=== PATIENT | female | born 1960 | race Caucasian/White ===

== ENCOUNTER 2017-04-04 06:46 | Inpatient (IN) | payer MEDICAID ==
[~2017-04-04] VITALS: Ht 165.1 cm; Wt 77.1 kg
[~2017-04-04 06:46] MED LIST: ALPR2TAB97 PO; ASPI-1159 PO; ATOR80TA PO; HYDR-4134 PO; ISOS60TA4 PO; METF500T4 PO; METO25TA6 PO
[2017-04-04] MEDS ORDERED: SODIUM CHLORIDE 0.9% 1,000 ML IV ONE (07:07)
[2017-04-04] MEDS ORDERED: METHYLPREDNISOLONE SOD SUCC 125 MG/2 ML VIAL IV STA (07:07)
[2017-04-04] MEDS ORDERED: CLONAZEPAM 0.5MG TABLET PO ONE (07:15)
[2017-04-04] MEDS ORDERED: IPRATROPIUM/ALBUTEROL 0.5-3(2.5)MG/3ML NEB HHN ONE (07:15)
[2017-04-04 07:27] LABS: BASOPHILS % 0.8 % (0.0-2.0); HEMOGLOBIN. 13.9 g/dL (12.0-16.0); LYMPHOCYTES % 22.1 % (20.0-50.0); MEAN CORPUSCULAR VOLUME 88.6 fL (81.0-99.0); MEAN PLATELET VOLUME 8.1 fl (7.4-10.4); MONOCYTES % 6.6 % (2.0-8.0); NEUTROPHILS % 68.5 % (40.0-76.0); PLATELET 247 x1000/uL (130-400); RED BLOOD CELL COUNT 4.62 mill/uL (4.2-5.4); RED CELL DISTRIBUTION WIDTH 13.7 % (11.6-14.6)
[2017-04-04 07:36] LABS: INR 0.9; PARTIAL THROMBOPLASTIN TIME 25.7 sec (24.0-34.0); PROTHROMBIN TIME 9.8 sec
[2017-04-04 07:40] LABS: CARBON DIOXIDE 29 mEq/L (21-32); CHLORIDE 106 mEq/L (98-107)
[2017-04-04 07:44] LABS: TROPONIN I < 0.02 ng/mL (0.00-0.04)
[2017-04-04] MEDS ORDERED: MAGNESIUM/ALUMINUM HYDROXIDE/SIMETHICONE 30ML UDC PO PRN (11:15)
[2017-04-04] MEDS ORDERED: ONDANSETRON HCL 4MG/2ML VIAL IV PRN (11:15)
[2017-04-04] MEDS ORDERED: IPRATROPIUM/ALBUTEROL 0.5-3(2.5)MG/3ML NEB INH PRN (11:15)
[2017-04-04] MEDS ORDERED: ACETAMINOPHEN 325MG TABLET PO PRN (11:15)
[2017-04-04] MEDS ORDERED: LORAZEPAM 0.5MG TABLET PO PRN (11:15)
[2017-04-04] MEDS ORDERED: DOCUSATE SODIUM 100MG CAPSULE PO PRN (11:15)
[2017-04-04] MEDS ORDERED: CLONIDINE 0.1MG TABLET PO PRN (11:15)
[2017-04-04 12:00] VITALS: BP 130/69
[2017-04-04] MEDS: ASPIRIN 81MG EC TABLET PO SCH (12:25)
[2017-04-04] MEDS: ENOXAPARIN 40MG/0.4ML SYR SUBCUT SCH (12:26)
[2017-04-04] MEDS ORDERED: PROMETHAZINE HCL 25MG TABLET PO PRN (12:30)
[2017-04-04] MEDS: BUDESONIDE 0.5MG/2ML NEB HHN SCH ×2 (12:32→21:24)
[2017-04-04 12:48] VITALS: BP 130/69
[2017-04-04] MEDS: METHYLPREDNISOLONE SOD SUCC 40 MG/ML VIAL IV SCH ×2 (14:05→21:02)
[2017-04-04] MEDS ORDERED: DEXTROSE 50% WATER 50ML SYRINGE IV PRN (14:45)
[2017-04-04] MEDS: LORATADINE 10MG TABLET PO SCH (15:00)
[2017-04-04] MEDS: DOCUSATE SODIUM 100MG CAPSULE PO SCH (15:03)
[2017-04-04] MEDS: HYDROCODONE/ACETAMINOPHEN 5/325MG TABLET PO PRN ×2 (15:04→23:59)
[2017-04-04 16:11] VITALS: BP 146/89
[2017-04-04 16:46] VITALS: BP 146/89
[2017-04-04] MEDS: BLOOD SUGAR DIAGNOSTIC STRIP TEST SCH ×2 (17:29→21:05)
[2017-04-04] MEDS: INSULIN LISPRO 100 UNITS/ML SUBCUT SCH ×2 (17:40→21:05)
[2017-04-04 18:11] LABS: CHLORIDE 106 mEq/L (98-107)
[2017-04-04 18:17] LABS: CARBON DIOXIDE 28 mEq/L (21-32)
[2017-04-04 18:22] LABS: CREATINE KINASE 37 IU/L (26-192); CREATINE KINASE MB FRACTION 1.4 ng/mL (0.5-3.6); TROPONIN I < 0.02 ng/mL (0.00-0.04)
[2017-04-04 20:00] VITALS: BP 113/73
[2017-04-04] MEDS ORDERED: ATORVASTATIN CALCIUM 40MG TABLET PO SCH (21:00)
[2017-04-04] MEDS: ALPRAZOLAM 0.5 MG TABLET PO SCH (21:02)
[2017-04-04 23:59] LABS: CREATINE KINASE 33 IU/L (26-192); CREATINE KINASE MB FRACTION 1.5 ng/mL (0.5-3.6); TROPONIN I < 0.02 ng/mL (0.00-0.04)
[2017-04-05] VITALS: BP 125/70
[2017-04-05 00:09] LABS: CLARITY URINE CLEAR (CLEAR); COLOR URINE YELLOW (YELLOW); GLUCOSE URINE 3+ (NEGATIVE); KETONES URINE NEGATIVE (NEGATIVE); LEUKOCYTE ESTERASE URINE NEGATIVE (NEGATIVE); NITRITE URINE POSITIVE (NEGATIVE); OCCULT BLOOD URINE NEGATIVE (NEGATIVE); PH URINE 7.5 (4.5-8.0); PROTEIN URINE NEGATIVE (NEGATIVE); SPECIFIC GRAVITY URINE 1.033 (1.005-1.030); UROBILINOGEN URINE 0.2 E.U./dL (0.2-1.0)
[2017-04-05 00:57] LABS: *AMPHETAMINES SCREEN URINE NEGATIVE (NEGATIVE); *BARBITURATES SCREEN URINE NEGATIVE (NEGATIVE); *BENZODIAZEPINES SCREEN URINE PRESUMTIVE POSITIVE (NEGATIVE); *COCAINE SCREEN URINE PRESUMTIVE POSITIVE (NEGATIVE); CANNABINOID URINE SCREEN NEGATIVE (NEGATIVE); METHADONE URINE SCREEN NEGATIVE (NEGATIVE); OPIATES URINE SCREEN PRESUMTIVE POSITIVE (NEGATIVE); PHENCYCLIDINE URINE SCREEN NEGATIVE (NEGATIVE)
[2017-04-05 04:00] VITALS: BP 129/76
[2017-04-05] MEDS: METHYLPREDNISOLONE SOD SUCC 40 MG/ML VIAL IV SCH ×2 (06:11→13:11)
[2017-04-05] MEDS: BLOOD SUGAR DIAGNOSTIC STRIP TEST SCH ×2 (06:12→11:31)
[2017-04-05 06:23] LABS: HEMATOCRIT. 39.3 % (36.0-48.0); HEMOGLOBIN. 12.9 g/dL (12.0-16.0); MEAN CORPUSCULAR HEMOGLOBIN 29.9 pg (28.0-32.0); MEAN CORPUSCULAR VOLUME 90.8 fL (81.0-99.0); MEAN PLATELET VOLUME 8.3 fl (7.4-10.4); PLATELET 242 x1000/uL (130-400); RED BLOOD CELL COUNT 4.33 mill/uL (4.2-5.4); RED CELL DISTRIBUTION WIDTH 14.2 % (11.6-14.6)
[2017-04-05 08:06] VITALS: BP 112/70
[2017-04-05] MEDS: INSULIN LISPRO 100 UNITS/ML SUBCUT SCH ×2 (08:22→13:13)
[2017-04-05] MEDS: ASPIRIN 81MG EC TABLET PO SCH (08:23)
[2017-04-05] MEDS: DOCUSATE SODIUM 100MG CAPSULE PO SCH (08:23)
[2017-04-05] MEDS: ALPRAZOLAM 0.5 MG TABLET PO SCH (08:23)
[2017-04-05] MEDS: ENOXAPARIN 40MG/0.4ML SYR SUBCUT SCH (08:23)
[2017-04-05] MEDS: LORATADINE 10MG TABLET PO SCH (08:26)
[2017-04-05] MEDS: BUDESONIDE 0.5MG/2ML NEB HHN SCH (09:59)
[2017-04-05 12:10] VITALS: BP 113/64
[2017-04-05 12:14] LABS: PLATELET ESTIMATE NORMAL
[2017-04-05 13:38] VITALS: BP 113/64
== END 2017-04-05 14:50 | disposition home or self-care (01) | DRG 140 ==
LOC: ER 07:03 → 6WST 08:14 → EDBEDREQTM 08:18 → EDBEDREQ 08:18 → ENRESERV 08:30
PROVIDERS: ADMIT Internal Medicine; ATTEND Internal Medicine
DX: J44.1 Chronic obstructive pulmonary disease with (acute) exacerbation (principal); J96.00 Acute respiratory failure, unspecified whether with hypoxia or hypercapnia; I11.9 Hypertensive heart disease without heart failure; Z99.81 Dependence on supplemental oxygen; F41.9 Anxiety disorder, unspecified; E11.9 Type 2 diabetes mellitus without complications; G47.33 Obstructive sleep apnea (adult) (pediatric); F19.10 Other psychoactive substance abuse, uncomplicated; I25.10 Atherosclerotic heart disease of native coronary artery without angina pectoris; J98.11 Atelectasis; Z91.19 Patient's noncompliance with other medical treatment and regimen; Z95.5 Presence of coronary angioplasty implant and graft; Z90.49 Acquired absence of other specified parts of digestive tract; Z88.6 Allergy status to analgesic agent; I25.2 Old myocardial infarction
CPT/HCPCS: 36415; 71010; 80048; 80053; 80061; 80305; 81001; 81003; 82550; 82553; 82962; 83605; 83735; 83880; 84443; 84484; 85025; 85610; 85730; 87040; 87070; 87077; 87086; 93005; 93970; 94640; 96374; 99285; J1650; J1815; J2920; J2930; J7030; J7620; J7626

== ENCOUNTER 2017-06-08 08:14 | Inpatient (IN) | payer MEDICAID ==
[~2017-06-08] VITALS: Ht 165.1 cm; Wt 72.6 kg
[2017-06-08] MEDS: IPRATROPIUM/ALBUTEROL 0.5-3(2.5)MG/3ML NEB INH SCH ×2 (00:07→20:04)
[2017-06-08] MEDS ORDERED: ALBUTEROL (0.083%) 2.5MG/3ML NEB HHN STA ×2 (08:40→12:09)
[2017-06-08] MEDS ORDERED: METHYLPREDNISOLONE SOD SUCC 125 MG/2 ML VIAL IV STA (08:40)
[2017-06-08] MEDS ORDERED: IPRATROPIUM BROMIDE (0.02%) 0.5MG/2.5ML NEB HHN STA ×2 (08:40→12:09)
[2017-06-08 09:33] LABS: BASOPHILS % 0.9 % (0.0-2.0); EOSINOPHILS % 0.9 % (0.0-5.0); LYMPHOCYTES % 33.1 % (20.0-50.0); MEAN CORPUSCULAR HEMOGLOBIN 30.1 pg (28.0-32.0); MEAN CORPUSCULAR VOLUME 90.5 fL (81.0-99.0); MEAN PLATELET VOLUME 8.1 fl (7.4-10.4); MONOCYTES % 8.5 % (2.0-8.0); NEUTROPHILS % 56.6 % (40.0-76.0); PLATELET 243 x1000/uL (130-400); RED BLOOD CELL COUNT 4.64 mill/uL (4.2-5.4); RED CELL DISTRIBUTION WIDTH 13.5 % (11.6-14.6)
[2017-06-08 09:36] LABS: CHLORIDE 104 mEq/L (98-107)
[2017-06-08 09:38] LABS: CARBON DIOXIDE 29 mEq/L (21-32)
[2017-06-08] MEDS ORDERED: POTASSIUM CHLORIDE 20MEQ TABLET SR PO ONE (09:45)
[2017-06-08] MEDS ORDERED: AZITHROMYCIN 500 MG TABLET PO ONE (10:15)
[2017-06-08] MEDS ORDERED: SODIUM CHLORIDE 0.9% 1,000 ML IV ONE (12:09)
[2017-06-08] MEDS ORDERED: LEVOFLOXACIN 750MG PREMIX 150 ML IV STA (12:09)
[2017-06-08] MEDS ORDERED: MAGNESIUM 2 G PREMIX 50 ML IV STA (12:09)
[2017-06-08] MEDS ORDERED: CLONIDINE 0.1MG TABLET PO PRN (13:30)
[2017-06-08] MEDS ORDERED: IPRATROPIUM/ALBUTEROL 0.5-3(2.5)MG/3ML NEB INH PRN (13:30)
[2017-06-08] MEDS ORDERED: DIPHENHYDRAMINE 50MG/ML VIAL IV PRN (13:30)
[2017-06-08] MEDS ORDERED: ONDANSETRON HCL 4MG/2ML VIAL IV PRN (13:30)
[2017-06-08] MEDS ORDERED: ACETAMINOPHEN 325MG TABLET PO PRN (13:30)
[2017-06-08] MEDS ORDERED: POTASSIUM CHLORIDE 20MEQ TABLET SR PO NR (13:45)
[2017-06-08] MEDS ORDERED: DEXTROSE 50% WATER 50ML SYRINGE IV PRN (13:45)
[2017-06-08] MEDS: METHYLPREDNISOLONE SOD SUCC 40 MG/ML VIAL IV SCH ×2 (15:39→23:40)
[2017-06-08] MEDS: INSULIN LISPRO 100 UNITS/ML SUBCUT SCH ×2 (16:37→20:53)
[2017-06-08] MEDS: BLOOD SUGAR DIAGNOSTIC STRIP TEST SCH ×2 (16:40→20:53)
[2017-06-08] MEDS ORDERED: LEVOFLOXACIN 500MG PREMIX 100 ML IV SCH (17:00)
[2017-06-08] MEDS: ENOXAPARIN 40MG/0.4ML SYR SUBCUT SCH (17:50)
[2017-06-08] MEDS: HYDROCODONE/ACETAMINOPHEN 5/325MG TABLET PO PRN (17:55)
[2017-06-08] MEDS: BUDESONIDE 0.5MG/2ML NEB HHN SCH (20:01)
[2017-06-08] MEDS: GUAIFENESIN 600MG ER TABLET PO SCH (20:53)
[2017-06-08] MEDS ORDERED: HYDRALAZINE HCL 25MG TABLET PO SCH (22:15)
[2017-06-08] MEDS ORDERED: METOPROLOL TARTRATE 25MG TABLET PO SCH (22:30)
[2017-06-08] MEDS: ATORVASTATIN CALCIUM 40MG TABLET PO SCH (23:41)
[2017-06-08] MEDS: ALPRAZOLAM 0.5 MG TABLET PO PRN (23:41)
[2017-06-09] MEDS: IPRATROPIUM/ALBUTEROL 0.5-3(2.5)MG/3ML NEB INH SCH ×6 (00:06→20:19)
[2017-06-09] MEDS: HYDROCODONE/ACETAMINOPHEN 5/325MG TABLET PO PRN ×2 (05:42→13:43)
[2017-06-09] MEDS: BLOOD SUGAR DIAGNOSTIC STRIP TEST SCH ×4 (05:45→20:10)
[2017-06-09 06:27] LABS: HEMATOCRIT. 39.4 % (36.0-48.0); HEMOGLOBIN. 12.9 g/dL (12.0-16.0); MEAN CORPUSCULAR HEMOGLOBIN 29.9 pg (28.0-32.0); MEAN CORPUSCULAR VOLUME 91.3 fL (81.0-99.0); MEAN PLATELET VOLUME 8.7 fl (7.4-10.4); PLATELET 247 x1000/uL (130-400); RED BLOOD CELL COUNT 4.31 mill/uL (4.2-5.4); RED CELL DISTRIBUTION WIDTH 13.4 % (11.6-14.6)
[2017-06-09] MEDS: INSULIN LISPRO 100 UNITS/ML SUBCUT SCH ×4 (06:46→20:11)
[2017-06-09 07:18] LABS: CHLORIDE 106 mEq/L (98-107)
[2017-06-09 07:26] LABS: CARBON DIOXIDE 28 mEq/L (21-32); HDL CHOLESTEROL 64 mg/dL (40-59); LDL CHOLESTEROL 83 mg/dL (5-100)
[2017-06-09] MEDS: BUDESONIDE 0.5MG/2ML NEB HHN SCH ×2 (07:55→20:22)
[2017-06-09] MEDS: GUAIFENESIN 600MG ER TABLET PO SCH ×2 (08:30→20:07)
[2017-06-09] MEDS: ALPRAZOLAM 0.5 MG TABLET PO PRN ×2 (08:30→23:47)
[2017-06-09] MEDS: METFORMIN HCL 500MG TABLET PO SCH ×2 (08:31→17:55)
[2017-06-09] MEDS: ASPIRIN 81MG EC TABLET PO SCH (08:31)
[2017-06-09] MEDS: METHYLPREDNISOLONE SOD SUCC 40 MG/ML VIAL IV SCH ×3 (08:36→23:47)
[2017-06-09] MEDS ORDERED: ISOSORBIDE MONONITRATE 60MG TABLET SR 24HR PO SCH (09:00)
[2017-06-09] MEDS ORDERED: MEDICATION NOT ON FORMULARY EA (Atorvastatin Calcium (Lipitor) 1 TAB) PO SCH (09:00)
[2017-06-09 09:59] LABS: PLATELET ESTIMATE NORMAL
[2017-06-09] MEDS: LEVOFLOXACIN 500MG PREMIX 100 ML IV SCH (13:36)
[2017-06-09] MEDS: ENOXAPARIN 40MG/0.4ML SYR SUBCUT SCH (17:55)
[2017-06-09] MEDS: ATORVASTATIN CALCIUM 40MG TABLET PO SCH (20:07)
[2017-06-10] MEDS: IPRATROPIUM/ALBUTEROL 0.5-3(2.5)MG/3ML NEB INH SCH ×7 (00:05→23:21)
[2017-06-10] MEDS: HYDROCODONE/ACETAMINOPHEN 5/325MG TABLET PO PRN ×2 (04:21→14:43)
[2017-06-10 06:18] LABS: HEMATOCRIT. 39.5 % (36.0-48.0); HEMOGLOBIN. 12.8 g/dL (12.0-16.0); MEAN CORPUSCULAR HEMOGLOBIN 29.6 pg (28.0-32.0); MEAN CORPUSCULAR VOLUME 91.3 fL (81.0-99.0); MEAN PLATELET VOLUME 8.3 fl (7.4-10.4); PLATELET 270 x1000/uL (130-400); RED BLOOD CELL COUNT 4.33 mill/uL (4.2-5.4); RED CELL DISTRIBUTION WIDTH 13.4 % (11.6-14.6)
[2017-06-10] MEDS: BLOOD SUGAR DIAGNOSTIC STRIP TEST SCH ×4 (06:38→20:34)
[2017-06-10 06:39] LABS: CARBON DIOXIDE 30 mEq/L (21-32); CHLORIDE 104 mEq/L (98-107)
[2017-06-10] MEDS: INSULIN LISPRO 100 UNITS/ML SUBCUT SCH ×4 (06:39→20:58)
[2017-06-10] MEDS: BUDESONIDE 0.5MG/2ML NEB HHN SCH ×2 (08:36→21:12)
[2017-06-10] MEDS: METHYLPREDNISOLONE SOD SUCC 40 MG/ML VIAL IV SCH ×2 (09:03→20:33)
[2017-06-10] MEDS: ASPIRIN 81MG EC TABLET PO SCH (09:04)
[2017-06-10] MEDS: ISOSORBIDE MONONITRATE 30MG TABLET SR 24HR PO SCH (09:04)
[2017-06-10] MEDS: METFORMIN HCL 500MG TABLET PO SCH ×2 (09:04→17:32)
[2017-06-10] MEDS: GUAIFENESIN 600MG ER TABLET PO SCH ×2 (09:05→20:34)
[2017-06-10] MEDS: ALPRAZOLAM 0.5 MG TABLET PO PRN ×2 (10:53→23:51)
[2017-06-10] MEDS: LEVOFLOXACIN 500MG PREMIX 100 ML IV SCH (14:44)
[2017-06-10] MEDS: ENOXAPARIN 40MG/0.4ML SYR SUBCUT SCH (14:44)
[2017-06-10] MEDS ORDERED: SODIUM POLYSTYRENE SULFONATE 15 G/60 ML BOT PO NR (16:09)
[2017-06-10] MEDS: CEFTRIAXONE 1 G PREMIX 50 ML IV SCH (17:32)
[2017-06-10] MEDS: AZITHROMYCIN 500 MG in DEXT 5% WATER 250 ML IV SCH (20:33)
[2017-06-10] MEDS: ATORVASTATIN CALCIUM 40MG TABLET PO SCH (20:34)
[2017-06-11] MEDS: IPRATROPIUM/ALBUTEROL 0.5-3(2.5)MG/3ML NEB INH SCH ×6 (03:43→23:42)
[2017-06-11] MEDS: HYDROCODONE/ACETAMINOPHEN 5/325MG TABLET PO PRN ×2 (04:17→08:43)
[2017-06-11] MEDS: BLOOD SUGAR DIAGNOSTIC STRIP TEST SCH ×4 (06:25→20:55)
[2017-06-11] MEDS: INSULIN LISPRO 100 UNITS/ML SUBCUT SCH ×4 (06:26→20:55)
[2017-06-11 06:51] LABS: HEMATOCRIT. 39.7 % (36.0-48.0); HEMOGLOBIN. 13.2 g/dL (12.0-16.0); LYMPHOCYTES % 7.9 % (20.0-50.0); MEAN CORPUSCULAR HEMOGLOBIN 30.1 pg (28.0-32.0); MEAN CORPUSCULAR VOLUME 90.7 fL (81.0-99.0); MEAN PLATELET VOLUME 8.5 fl (7.4-10.4); MONOCYTES % 4.7 % (2.0-8.0); NEUTROPHILS % 87.4 % (40.0-76.0); PLATELET 258 x1000/uL (130-400); RED BLOOD CELL COUNT 4.38 mill/uL (4.2-5.4); RED CELL DISTRIBUTION WIDTH 13.4 % (11.6-14.6)
[2017-06-11 07:15] LABS: CHLORIDE 102 mEq/L (98-107)
[2017-06-11 07:22] LABS: CARBON DIOXIDE 29 mEq/L (21-32)
[2017-06-11] MEDS: BUDESONIDE 0.5MG/2ML NEB HHN SCH (08:26)
[2017-06-11] MEDS: ASPIRIN 81MG EC TABLET PO SCH (08:36)
[2017-06-11] MEDS: METHYLPREDNISOLONE SOD SUCC 40 MG/ML VIAL IV SCH ×2 (08:36→20:48)
[2017-06-11] MEDS: ISOSORBIDE MONONITRATE 30MG TABLET SR 24HR PO SCH (08:36)
[2017-06-11] MEDS: GUAIFENESIN 600MG ER TABLET PO SCH ×2 (08:36→20:48)
[2017-06-11] MEDS: METFORMIN HCL 500MG TABLET PO SCH ×2 (08:37→16:54)
[2017-06-11] MEDS: ALPRAZOLAM 0.5 MG TABLET PO PRN ×2 (08:42→16:54)
[2017-06-11] MEDS ORDERED: SODIUM POLYSTYRENE SULFONATE 15 G/60 ML BOT PO NR (09:41)
[2017-06-11 12:16] LABS: PLATELET ESTIMATE NORMAL
[2017-06-11] MEDS ORDERED: DILTIAZEM HCL 5MG/ML 5ML VIAL IV PRN (15:45)
[2017-06-11] MEDS: ENOXAPARIN 40MG/0.4ML SYR SUBCUT SCH (17:00)
[2017-06-11] MEDS: CEFTRIAXONE 1 G PREMIX 50 ML IV SCH (17:00)
[2017-06-11] MEDS: DILTIAZEM HCL 30MG TABLET PO SCH (17:01)
[2017-06-11] MEDS: AZITHROMYCIN 500 MG in DEXT 5% WATER 250 ML IV SCH (20:48)
[2017-06-11] MEDS ORDERED: ATORVASTATIN CALCIUM 20MG TABLET PO SCH (21:00)
[2017-06-12] MEDS: DILTIAZEM HCL 30MG TABLET PO SCH ×3 (00:10→12:00)
[2017-06-12] MEDS: HYDROCODONE/ACETAMINOPHEN 5/325MG TABLET PO PRN ×3 (00:12→12:57)
[2017-06-12] MEDS: IPRATROPIUM/ALBUTEROL 0.5-3(2.5)MG/3ML NEB INH SCH ×4 (03:30→16:00)
[2017-06-12] MEDS: ALPRAZOLAM 0.5 MG TABLET PO PRN ×2 (05:13→14:48)
[2017-06-12] MEDS: BLOOD SUGAR DIAGNOSTIC STRIP TEST SCH ×2 (06:50→11:52)
[2017-06-12] MEDS: METFORMIN HCL 500MG TABLET PO SCH (06:50)
[2017-06-12] MEDS: INSULIN LISPRO 100 UNITS/ML SUBCUT SCH ×2 (06:50→12:15)
[2017-06-12 06:53] LABS: HEMATOCRIT. 41.7 % (36.0-48.0); HEMOGLOBIN. 13.7 g/dL (12.0-16.0); MEAN CORPUSCULAR HEMOGLOBIN 29.8 pg (28.0-32.0); MEAN CORPUSCULAR VOLUME 90.9 fL (81.0-99.0); MEAN PLATELET VOLUME 8.1 fl (7.4-10.4); PLATELET 228 x1000/uL (130-400); RED BLOOD CELL COUNT 4.59 mill/uL (4.2-5.4); RED CELL DISTRIBUTION WIDTH 13.3 % (11.6-14.6)
[2017-06-12 07:35] LABS: CHLORIDE 103 mEq/L (98-107)
[2017-06-12 07:59] LABS: CARBON DIOXIDE 29 mEq/L (21-32)
[2017-06-12] MEDS: ASPIRIN 81MG EC TABLET PO SCH (08:58)
[2017-06-12] MEDS: ISOSORBIDE MONONITRATE 30MG TABLET SR 24HR PO SCH (08:59)
[2017-06-12] MEDS: GUAIFENESIN 600MG ER TABLET PO SCH (08:59)
[2017-06-12] MEDS: METHYLPREDNISOLONE SOD SUCC 40 MG/ML VIAL IV SCH (08:59)
[2017-06-12 10:27] LABS: PLATELET ESTIMATE NORMAL
[2017-06-12] MEDS ORDERED: MAGNESIUM 2 G PREMIX 50 ML IV SCH (12:00)
[2017-06-12] MEDS ORDERED: POTASSIUM CHLORIDE 20MEQ TABLET SR PO ONE ×2 (15:30)
[2017-06-12] MEDS ORDERED: SODIUM CHLORIDE 0.9% 1,000 ML IV SCH (15:30)
[2017-06-12 15:48] VITALS: BP 93/50
[2017-06-12] MEDS ORDERED: PREDNISONE 20MG TABLET PO SCH (17:15)
[2017-06-12] MEDS ORDERED: AZITHROMYCIN 500 MG TABLET PO SCH (20:00)
[2017-08-01] MEDS ORDERED: ALBU18HF2 IH (10:00)
[2017-08-01] MEDS ORDERED: ISOS60TA4 PO (10:00)
[2017-08-01] MEDS ORDERED: P50 PO (10:00)
[2017-08-01] MEDS ORDERED: ASPI-986 PO (10:00)
[2017-08-01] MEDS ORDERED: METF500T4 PO (10:00)
[2017-08-01] MEDS ORDERED: TIOT18CA3 INH (10:00)
[2017-08-01] MEDS ORDERED: ATOR80TA PO (10:00)
[2017-08-01] MEDS ORDERED: CEPH-569 PO (10:01)
[2017-08-01] MEDS ORDERED: PROM25TA13 PO (12:16)
[2017-10-05] MEDS ORDERED: ALPR2TAB2 PO (09:52)
[2017-10-05] MEDS ORDERED: HYDR-4005 PO (09:52)
== END 2017-06-12 19:00 | disposition home or self-care (01) | DRG 720 ==
LOC: ER 08:24 → 5WST 12:16 → ENRESERV 13:12
PROVIDERS: ADMIT Internal Medicine; ATTEND Internal Medicine
PROC: 5A09457 Assistance with Respiratory Ventilation, 24-96 Consecutive Hours, Continuous Positive Airway Pressure (ICD-10-PCS; principal; 2017-06-09)
DX: A41.9 Sepsis, unspecified organism (principal); J96.01 Acute respiratory failure with hypoxia; I11.0 Hypertensive heart disease with heart failure; J18.9 Pneumonia, unspecified organism; I50.9 Heart failure, unspecified; J44.0 Chronic obstructive pulmonary disease with (acute) lower respiratory infection; J44.1 Chronic obstructive pulmonary disease with (acute) exacerbation; E11.9 Type 2 diabetes mellitus without complications; E87.6 Hypokalemia; I25.10 Atherosclerotic heart disease of native coronary artery without angina pectoris; Z82.5 Family history of asthma and other chronic lower respiratory diseases; Z87.891 Personal history of nicotine dependence; Z95.5 Presence of coronary angioplasty implant and graft; E66.9 Obesity, unspecified; E78.5 Hyperlipidemia, unspecified; E87.5 Hyperkalemia; F41.9 Anxiety disorder, unspecified; G47.33 Obstructive sleep apnea (adult) (pediatric); I47.1 Supraventricular tachycardia; I48.92 Unspecified atrial flutter; K43.2 Incisional hernia without obstruction or gangrene; T38.0X5A Adverse effect of glucocorticoids and synthetic analogues, initial encounter; Z79.82 Long term (current) use of aspirin; Z79.84 Long term (current) use of oral hypoglycemic drugs; Z79.899 Other long term (current) drug therapy; Z82.49 Family history of ischemic heart disease and other diseases of the circulatory system; Z87.74 Personal history of (corrected) congenital malformations of heart and circulatory system; Z88.5 Allergy status to narcotic agent; Z90.49 Acquired absence of other specified parts of digestive tract; Z95.1 Presence of aortocoronary bypass graft; Z68.26 Body mass index [BMI] 26.0-26.9, adult; Z83.6 Family history of other diseases of the respiratory system
CPT/HCPCS: 36415; 71010; 80048; 80053; 80061; 82962; 83605; 83735; 84132; 84484; 85025; 87040; 87086; 93005; 93306; 94640; 94644; 94660; 94664; 96365; 96375; 99285; J0456; J0696; J1200; J1650; J1815; J1956; J2920; J2930; J3475; J7030; J7040; J7060; J7611; J7620; J7626

== ENCOUNTER 2017-07-13 19:50 | Inpatient (IN) | payer MEDICAID, OTHER ==
[~2017-07-13] VITALS: Ht 165.1 cm; Wt 78.2 kg
[~2017-07-13 19:50] MED LIST changes: -HYDR-4134 PO; -METO25TA6 PO
[2017-07-13] MEDS ORDERED: METHYLPREDNISOLONE SOD SUCC 125 MG/2 ML VIAL IV STA (21:00)
[2017-07-13] MEDS ORDERED: IPRATROPIUM BROMIDE (0.02%) 0.5MG/2.5ML NEB HHN STA (21:00)
[2017-07-13] MEDS ORDERED: METHYLPREDNISOLONE SOD SUCC 125 MG/2 ML VIAL IV ONE (21:00)
[2017-07-13] MEDS ORDERED: HYDROCODONE/ACETAMINOPHEN 5/325MG TABLET PO ONE (21:00)
[2017-07-13] MEDS ORDERED: ALBUTEROL (0.083%) 2.5MG/3ML NEB HHN STA (21:00)
[2017-07-13] MEDS ORDERED: ALPRAZOLAM 0.5 MG TABLET PO ONE (21:30)
[2017-07-13 23:40] LABS: BASOPHILS % 0.5 % (0.0-2.0); EOSINOPHILS % 0.7 % (0.0-5.0); HEMATOCRIT. 41.4 % (36.0-48.0); HEMOGLOBIN. 13.7 g/dL (12.0-16.0); LYMPHOCYTES % 24.7 % (20.0-50.0); MEAN CORPUSCULAR HEMOGLOBIN 30.2 pg (28.0-32.0); MEAN CORPUSCULAR VOLUME 91.2 fL (81.0-99.0); MEAN PLATELET VOLUME 8.2 fl (7.4-10.4); MONOCYTES % 3.3 % (2.0-8.0); NEUTROPHILS % 70.8 % (40.0-76.0); PLATELET 157 x1000/uL (130-400); RED BLOOD CELL COUNT 4.54 mill/uL (4.2-5.4); RED CELL DISTRIBUTION WIDTH 14.1 % (11.6-14.6)
[2017-07-13 23:56] LABS: CARBON DIOXIDE 27 mEq/L (21-32); CHLORIDE 110 mEq/L (98-107); TROPONIN I < 0.02 ng/mL (0.00-0.04)
[2017-07-14] MEDS ORDERED: ACETAMINOPHEN 325MG TABLET PO PRN (00:15)
[2017-07-14] MEDS ORDERED: NA PHOS,M-B/NA PHOS,DI-BA ENEMA 118ML PR PRN (00:15)
[2017-07-14] MEDS ORDERED: CLONIDINE 0.1MG TABLET PO PRN (00:15)
[2017-07-14] MEDS ORDERED: LORAZEPAM 2MG/ML CPJ IV PRN (00:15)
[2017-07-14] MEDS ORDERED: DIPHENHYDRAMINE 50MG/ML VIAL IV PRN (00:15)
[2017-07-14] MEDS ORDERED: GUAIFENESIN 200MG/10ML SUGAR FREE UDC PO PRN (00:15)
[2017-07-14] MEDS ORDERED: NITROGLYCERIN 0.4MG TABLET SL SL PRN (00:15)
[2017-07-14] MEDS ORDERED: MAGNESIUM/ALUMINUM HYDROXIDE/SIMETHICONE 30ML UDC PO PRN (00:15)
[2017-07-14] MEDS ORDERED: ONDANSETRON HCL 4MG/2ML VIAL IV PRN (00:15)
[2017-07-14] MEDS ORDERED: ZOLPIDEM TARTRATE 5MG TABLET PO PRN (00:15)
[2017-07-14] MEDS ORDERED: DOCUSATE SODIUM 100MG CAPSULE PO PRN (00:15)
[2017-07-14] MEDS ORDERED: IPRATROPIUM/ALBUTEROL 0.5-3(2.5)MG/3ML NEB INH PRN (00:15)
[2017-07-14 02:00] VITALS: BP 114/49
[2017-07-14] MEDS: KETOROLAC 15MG/ML VIAL IV PRN ×2 (02:15→08:53)
[2017-07-14 04:00] VITALS: BP 115/60
[2017-07-14] MEDS ORDERED: IPRATROPIUM/ALBUTEROL 0.5-3(2.5)MG/3ML NEB HHN SCH (04:00)
[2017-07-14] MEDS ORDERED: METHYLPREDNISOLONE SOD SUCC 125 MG/2 ML VIAL IV SCH (06:00)
[2017-07-14 07:43] LABS: CREATINE KINASE 44 IU/L (26-192); CREATINE KINASE MB FRACTION 2.1 ng/mL (0.5-3.6); TROPONIN I < 0.02 ng/mL (0.00-0.04)
[2017-07-14 08:00] VITALS: BP 126/79
[2017-07-14] MEDS ORDERED: FAMOTIDINE 20MG/2ML VIAL IV SCH (09:00)
[2017-07-14] MEDS ORDERED: ENOXAPARIN 40MG/0.4ML SYR SUBCUT SCH (09:00)
[2017-07-14] MEDS ORDERED: ASPIRIN 325MG EC TABLET PO SCH (09:00)
[2017-07-14] MEDS ORDERED: GUAIFENESIN/DM 600MG/30MG ER TAB 12HR PO SCH (09:00)
[2017-07-14] MEDS ORDERED: BUDESONIDE 0.5MG/2ML NEB HHN SCH (11:45)
[2017-07-14] MEDS ORDERED: PNEUMOCOCCAL 23-VAL P-SAC VAC 0.5 ML IM ONE (12:00)
[2017-07-14 12:40] VITALS: BP 125/80
[2017-07-14 13:05] LABS: *AMPHETAMINES SCREEN URINE NEGATIVE (NEGATIVE); *BARBITURATES SCREEN URINE PRESUMTIVE POSITIVE (NEGATIVE); *BENZODIAZEPINES SCREEN URINE PRESUMTIVE POSITIVE (NEGATIVE); *COCAINE SCREEN URINE PRESUMTIVE POSITIVE (NEGATIVE); CANNABINOID URINE SCREEN PRESUMTIVE POSITIVE (NEGATIVE); METHADONE URINE SCREEN NEGATIVE (NEGATIVE); OPIATES URINE SCREEN PRESUMTIVE POSITIVE (NEGATIVE); PHENCYCLIDINE URINE SCREEN NEGATIVE (NEGATIVE)
[2017-08-01] MEDS ORDERED: ASPI-986 PO (10:00)
[2017-08-01] MEDS ORDERED: METF500T4 PO (10:00)
[2017-08-01] MEDS ORDERED: TIOT18CA3 INH (10:00)
[2017-08-01] MEDS ORDERED: ALBU18HF2 IH (10:00)
[2017-08-01] MEDS ORDERED: ATOR80TA PO (10:00)
[2017-08-01] MEDS ORDERED: ISOS60TA4 PO (10:00)
[2017-08-01] MEDS ORDERED: P50 PO (10:00)
[2017-08-01] MEDS ORDERED: CEPH-569 PO (10:01)
[2017-08-01] MEDS ORDERED: PROM25TA13 PO (12:16)
== END 2017-07-14 13:00 | disposition home or self-care (01) | DRG 140 ==
LOC: ER 21:35 → 5WST 23:45 → ENRESERV 07-14 00:11
PROVIDERS: ADMIT Internal Medicine; ATTEND Internal Medicine
DX: J44.1 Chronic obstructive pulmonary disease with (acute) exacerbation (principal); J96.00 Acute respiratory failure, unspecified whether with hypoxia or hypercapnia; I11.0 Hypertensive heart disease with heart failure; I50.32 Chronic diastolic (congestive) heart failure; J45.901 Unspecified asthma with (acute) exacerbation; E66.9 Obesity, unspecified; E11.9 Type 2 diabetes mellitus without complications; F41.1 Generalized anxiety disorder; G47.30 Sleep apnea, unspecified; I25.10 Atherosclerotic heart disease of native coronary artery without angina pectoris; Z82.49 Family history of ischemic heart disease and other diseases of the circulatory system; Z87.891 Personal history of nicotine dependence; Z95.5 Presence of coronary angioplasty implant and graft; Z88.5 Allergy status to narcotic agent; Z68.28 Body mass index [BMI] 28.0-28.9, adult; Z82.5 Family history of asthma and other chronic lower respiratory diseases; Z79.84 Long term (current) use of oral hypoglycemic drugs; Z79.899 Other long term (current) drug therapy; Z90.49 Acquired absence of other specified parts of digestive tract
CPT/HCPCS: 36415; 71010; 80048; 80061; 80305; 82550; 82553; 83036; 83880; 84484; 85025; 94640; 94660; 96374; 99291; J1650; J1885; J2060; J2930; J3490; J7611; J7620

== ENCOUNTER 2017-07-31 01:23 | Inpatient (IN) | payer MEDICAID ==
[~2017-07-31] VITALS: Ht 162.6 cm; Wt 72.6 kg
[2017-07-31] MEDS ORDERED: ASPIRIN 81MG TABLET PO ONE (03:00)
[2017-07-31] MEDS ORDERED: KETOROLAC 30MG/ML VIAL IV STA (03:00)
[2017-07-31] MEDS ORDERED: MAGNESIUM 2 G PREMIX 50 ML IV ONE (03:00)
[2017-07-31] MEDS ORDERED: LEVOFLOXACIN 250MG PREMIX 50 ML IV ONE (03:00)
[2017-07-31] MEDS ORDERED: ALBUTEROL (0.083%) 2.5MG/3ML NEB HHN STA (03:00)
[2017-07-31] MEDS ORDERED: IPRATROPIUM BROMIDE (0.02%) 0.5MG/2.5ML NEB HHN STA (03:00)
[2017-07-31] MEDS ORDERED: METHYLPREDNISOLONE SOD SUCC 125 MG/2 ML VIAL IV STA (03:00)
[2017-07-31] MEDS ORDERED: NITROGLYCERIN OINT 1GM/INCH UDPKT TD ONE (03:00)
[2017-07-31] MEDS ORDERED: SODIUM CHLORIDE 0.9% 1,000 ML IV ONE (03:00)
[2017-07-31 03:27] LABS: EOSINOPHILS % 0.6 % (0.0-5.0); HEMATOCRIT. 40.2 % (36.0-48.0); HEMOGLOBIN. 13.4 g/dL (12.0-16.0); MEAN CORPUSCULAR HEMOGLOBIN 29.9 pg (28.0-32.0); MEAN CORPUSCULAR VOLUME 89.8 fL (81.0-99.0); MEAN PLATELET VOLUME 8.3 fl (7.4-10.4); NEUTROPHILS % 78.4 % (40.0-76.0); PLATELET 207 x1000/uL (130-400); RED BLOOD CELL COUNT 4.48 mill/uL (4.2-5.4); RED CELL DISTRIBUTION WIDTH 14.3 % (11.6-14.6)
[2017-07-31 03:40] LABS: D-DIMER 0.33 mg/L FEU (<0.50)
[2017-07-31 03:52] LABS: CARBON DIOXIDE 26 mEq/L (21-32); CHLORIDE 109 mEq/L (98-107); ETHANOL BLOOD < 10 mg/dL; HCG SCREEN NEGATIVE; TROPONIN I < 0.02 ng/mL (0.00-0.04)
[2017-07-31 10:00] VITALS: BP 109/70
[2017-07-31] MEDS ORDERED: ASPI-986 PO (10:14)
[2017-07-31] MEDS ORDERED: ALBU18HF2 IH (10:14)
[2017-07-31] MEDS ORDERED: TIOT18CA3 INH (10:14)
[2017-07-31] MEDS: ALPRAZOLAM 0.5 MG TABLET PO SCH ×2 (11:04→22:38)
[2017-07-31] MEDS ORDERED: CLONIDINE 0.1MG TABLET PO PRN (13:45)
[2017-07-31] MEDS ORDERED: NA PHOS,M-B/NA PHOS,DI-BA ENEMA 118ML PR PRN (13:45)
[2017-07-31] MEDS ORDERED: ACETAMINOPHEN 650MG/20.3ML UDC GT PRN (13:45)
[2017-07-31] MEDS ORDERED: MAGNESIUM/ALUMINUM HYDROXIDE/SIMETHICONE 30ML UDC PO PRN (13:45)
[2017-07-31] MEDS ORDERED: ACETAMINOPHEN 650MG SUPP PR PRN (13:45)
[2017-07-31] MEDS ORDERED: IPRATROPIUM/ALBUTEROL 0.5-3(2.5)MG/3ML NEB INH PRN (13:45)
[2017-07-31] MEDS ORDERED: PIPERACILLIN/TAZ 2.25G PREMIX 50 ML IV SCH (13:45)
[2017-07-31] MEDS ORDERED: DIPHENHYDRAMINE 50MG/ML VIAL IV PRN (13:45)
[2017-07-31] MEDS ORDERED: ONDANSETRON HCL 4MG/2ML VIAL IV PRN (13:45)
[2017-07-31] MEDS: SODIUM CHLORIDE 0.9% INJ 3ML FLUSH IVF SCH ×2 (14:00→20:46)
[2017-07-31] MEDS: IPRATROPIUM/ALBUTEROL 0.5-3(2.5)MG/3ML NEB INH SCH ×2 (15:10→21:49)
[2017-07-31 16:00] VITALS: BP 102/60
[2017-07-31] MEDS ORDERED: INFLUENZA VIRUS VACCINE 0.5ML SYR IM ONE (16:00)
[2017-07-31 16:32] LABS: CARBON DIOXIDE 29 mEq/L (21-32); CHLORIDE 106 mEq/L (98-107); CREATINE KINASE 62 IU/L (26-192); TROPONIN I < 0.02 ng/mL (0.00-0.04)
[2017-07-31] MEDS: PIPERACILLIN/TAZ 3.375G PREMIX 50 ML IV SCH ×2 (16:52→21:14)
[2017-07-31] MEDS: HYDROCODONE/ACETAMINOPHEN 5/325MG TABLET PO PRN ×2 (16:53→20:44)
[2017-07-31 20:00] VITALS: BP 120/63
[2017-07-31] MEDS ORDERED: ATOR80TA PO (22:41)
[2017-07-31] MEDS ORDERED: MEDICATION NOT ON FORMULARY EA (Atorvastatin Calcium (Lipitor) 1 TAB) PO SCH (23:30)
[2017-07-31] MEDS ORDERED: ATORVASTATIN CALCIUM 40MG TABLET PO SCH ×2 (23:30)
[2017-08-01] VITALS: BP 101/52
[2017-08-01 00:24] LABS: CREATINE KINASE 47 IU/L (26-192); TROPONIN I < 0.02 ng/mL (0.00-0.04)
[2017-08-01] MEDS: IPRATROPIUM/ALBUTEROL 0.5-3(2.5)MG/3ML NEB INH SCH ×2 (02:34→07:46)
[2017-08-01 04:00] VITALS: BP 129/51
[2017-08-01 04:57] LABS: CLARITY URINE CLEAR (CLEAR); COLOR URINE YELLOW (YELLOW); GLUCOSE URINE NEGATIVE (NEGATIVE); KETONES URINE TRACE (NEGATIVE); LEUKOCYTE ESTERASE URINE NEGATIVE (NEGATIVE); NITRITE URINE NEGATIVE (NEGATIVE); OCCULT BLOOD URINE NEGATIVE (NEGATIVE); PH URINE 5.5 (4.5-8.0); PROTEIN URINE NEGATIVE (NEGATIVE); UROBILINOGEN URINE 0.2 E.U./dL (0.2-1.0)
[2017-08-01 05:00] LABS: *AMPHETAMINES SCREEN URINE NEGATIVE (NEGATIVE); *BARBITURATES SCREEN URINE NEGATIVE (NEGATIVE); *BENZODIAZEPINES SCREEN URINE PRESUMTIVE POSITIVE (NEGATIVE); *COCAINE SCREEN URINE PRESUMTIVE POSITIVE (NEGATIVE); CANNABINOID URINE SCREEN PRESUMTIVE POSITIVE (NEGATIVE); METHADONE URINE SCREEN NEGATIVE (NEGATIVE); OPIATES URINE SCREEN PRESUMTIVE POSITIVE (NEGATIVE); PHENCYCLIDINE URINE SCREEN NEGATIVE (NEGATIVE)
[2017-08-01] MEDS: PIPERACILLIN/TAZ 3.375G PREMIX 50 ML IV SCH (05:05)
[2017-08-01] MEDS: SODIUM CHLORIDE 0.9% INJ 3ML FLUSH IVF SCH (05:08)
[2017-08-01 08:00] VITALS: BP 97/46
[2017-08-01] MEDS ORDERED: MEDICATION NOT ON FORMULARY EA (Atorvastatin Calcium (Lipitor) 1 TAB) PO SCH (09:00)
[2017-08-01] MEDS: HYDROCODONE/ACETAMINOPHEN 5/325MG TABLET PO PRN (09:48)
[2017-08-01] MEDS ORDERED: ATOR80TA PO (10:00)
[2017-08-01] MEDS ORDERED: P50 PO (10:00)
[2017-08-01] MEDS ORDERED: TIOT18CA3 INH (10:00)
[2017-08-01] MEDS ORDERED: ISOS60TA4 PO (10:00)
[2017-08-01] MEDS ORDERED: ASPI-986 PO (10:00)
[2017-08-01] MEDS ORDERED: METF500T4 PO (10:00)
[2017-08-01] MEDS ORDERED: ALPR2TAB97 PO (10:00)
[2017-08-01] MEDS ORDERED: ALBU18HF2 IH (10:00)
[2017-08-01] MEDS ORDERED: CEPH-569 PO (10:01)
[2017-08-01 10:19] LABS: CARBON DIOXIDE 28 mEq/L (21-32); CHLORIDE 108 mEq/L (98-107); HDL CHOLESTEROL 64 mg/dL (40-59); LDL CHOLESTEROL 73 mg/dL (5-100)
[2017-08-01 10:25] LABS: BASOPHILS % 0.4 % (0.0-2.0); EOSINOPHILS % 0.3 % (0.0-5.0); HEMATOCRIT. 39.7 % (36.0-48.0); LYMPHOCYTES % 19.2 % (20.0-50.0); MEAN CORPUSCULAR VOLUME 91.8 fL (81.0-99.0); MEAN PLATELET VOLUME 8.9 fl (7.4-10.4); MONOCYTES % 6.3 % (2.0-8.0); NEUTROPHILS % 73.8 % (40.0-76.0); PLATELET 190 x1000/uL (130-400); RED BLOOD CELL COUNT 4.33 mill/uL (4.2-5.4); RED CELL DISTRIBUTION WIDTH 14.3 % (11.6-14.6)
[2017-08-01 12:00] VITALS: BP 111/51
[2017-08-01] MEDS ORDERED: PROM25TA13 PO (12:16)
[2017-08-01] MEDS: ALPRAZOLAM 0.5 MG TABLET PO SCH (12:24)
[2017-08-01 12:59] VITALS: BP 111/51
== END 2017-08-01 14:15 | disposition home or self-care (01) | DRG 140 ==
LOC: ER 03:22 → 7WST 03:51 → ENRESERVDT 06:54 → ENRESERVTM 06:54 → CANBEDREQ 08:40
PROVIDERS: ADMIT Family Medicine; ATTEND Family Medicine
DX: J44.1 Chronic obstructive pulmonary disease with (acute) exacerbation (principal); J96.00 Acute respiratory failure, unspecified whether with hypoxia or hypercapnia; I11.0 Hypertensive heart disease with heart failure; I50.9 Heart failure, unspecified; J45.901 Unspecified asthma with (acute) exacerbation; E11.9 Type 2 diabetes mellitus without complications; F41.0 Panic disorder [episodic paroxysmal anxiety]; E66.9 Obesity, unspecified; G47.33 Obstructive sleep apnea (adult) (pediatric); I25.10 Atherosclerotic heart disease of native coronary artery without angina pectoris; F17.200 Nicotine dependence, unspecified, uncomplicated; Z91.14 Patient's other noncompliance with medication regimen; Z95.5 Presence of coronary angioplasty implant and graft; Z68.27 Body mass index [BMI] 27.0-27.9, adult; Z88.6 Allergy status to analgesic agent; Z79.82 Long term (current) use of aspirin; Z79.84 Long term (current) use of oral hypoglycemic drugs; Z79.899 Other long term (current) drug therapy
CPT/HCPCS: 36415; 71010; 73130; 80048; 80053; 80061; 80305; 81003; 82550; 83036; 83605; 83690; 83880; 84484; 84703; 85025; 85379; 85610; 85730; 87040; 87086; 90686; 93005; 94640; 94664; 96365; 96368; 96375; 99285; G0482; J1885; J1956; J2543; J2930; J3475; J7030; J7050; J7611; J7620

== ENCOUNTER 2017-11-27 21:50 | Emergency (ER) | payer MEDICAID ==
[~2017-11-27] VITALS: Ht 152.4 cm; Wt 68.0 kg
[~2017-11-27 21:50] MED LIST changes: +ALBU18HF2 IH; +ALPR2TAB2 PO; -ALPR2TAB97 PO; -ASPI-1159 PO; +ASPI-986 PO; +HYDR-4005 PO; +P50 PO; +PROM25TA13 PO; +TIOT18CA3 INH
[2017-11-27] MEDS ORDERED: ONDANSETRON HCL 4MG/2ML VIAL IV STA (23:32)
[2017-11-27] MEDS ORDERED: IPRATROPIUM BROMIDE (0.02%) 0.5MG/2.5ML NEB HHN STA (23:32)
[2017-11-27] MEDS ORDERED: MORPHINE SULFATE 4 MG/ML CPJ (NOT FOR IM USE) IV STA (23:32)
[2017-11-27] MEDS ORDERED: PREDNISONE 20MG TABLET PO STA (23:32)
[2017-11-27] MEDS ORDERED: ALBUTEROL (0.083%) 2.5MG/3ML NEB HHN STA (23:32)
[2017-11-27] MEDS ORDERED: DIPHENHYDRAMINE 50MG/ML VIAL IV ONE (23:45)
[2017-11-27 23:53] LABS: BASOPHILS % 0.7 % (0.0-2.0); EOSINOPHILS % 1.4 % (0.0-5.0); HEMOGLOBIN. 13.7 g/dL (12.0-16.0); LYMPHOCYTES % 19.9 % (20.0-50.0); MEAN CORPUSCULAR HEMOGLOBIN 30.6 pg (28.0-32.0); MEAN CORPUSCULAR VOLUME 91.6 fL (81.0-99.0); MEAN PLATELET VOLUME 8.8 fl (7.4-10.4); PLATELET 246 x1000/uL (130-400); RED BLOOD CELL COUNT 4.47 mill/uL (4.2-5.4); RED CELL DISTRIBUTION WIDTH 14.1 % (11.6-14.6)
[2017-11-28 00:10] LABS: CHLORIDE 107 mEq/L (98-107); TROPONIN I < 0.02 ng/mL (0.00-0.04)
[2017-11-28] MEDS ORDERED: HYDROCODONE/ACETAMINOPHEN 5/325MG TABLET PO ONE (04:00)
[2017-11-28 05:30] VITALS: BP 108/72
== END 2017-11-28 07:55 | disposition home or self-care (01) ==
LOC: ER 21:58
DX: S20.219A Contusion of unspecified front wall of thorax, initial encounter (principal); S09.90XA Unspecified injury of head, initial encounter; S92.412A Displaced fracture of proximal phalanx of left great toe, initial encounter for closed fracture; V19.40XA Pedal cycle driver injured in collision with unspecified motor vehicles in traffic accident, initial encounter; Y93.55 Activity, bike riding; Y92.9 Unspecified place or not applicable; J44.9 Chronic obstructive pulmonary disease, unspecified; I51.7 Cardiomegaly; J98.11 Atelectasis; F17.200 Nicotine dependence, unspecified, uncomplicated; E11.9 Type 2 diabetes mellitus without complications; Z88.5 Allergy status to narcotic agent; Z95.5 Presence of coronary angioplasty implant and graft; Z79.82 Long term (current) use of aspirin
CPT/HCPCS: 36415; 70450; 71045; 73630; 80048; 84484; 85025; 93005; 94640; 96374; 96375; 99285; J1200; J2270; J2405; J7512; J7611

== ENCOUNTER 2017-12-10 06:14 | Inpatient (IN) | payer MEDICAID ==
[~2017-12-10] VITALS: Ht 152.4 cm; Wt 74.8 kg
[~2017-12-10 06:14] MED LIST changes: +METF-414 PO; -METF500T4 PO
[2017-12-10] MEDS ORDERED: ASPIRIN 81MG TABLET PO STA (07:10)
[2017-12-10] MEDS ORDERED: ALBUTEROL (0.083%) 2.5MG/3ML NEB HHN STA (07:10)
[2017-12-10] MEDS ORDERED: IPRATROPIUM BROMIDE (0.02%) 0.5MG/2.5ML NEB HHN STA (07:10)
[2017-12-10] MEDS ORDERED: METHYLPREDNISOLONE SOD SUCC 125 MG/2 ML VIAL IV STA (07:10)
[2017-12-10] MEDS ORDERED: OSELTAMIVIR 75MG CAPSULE PO ONE (07:15)
[2017-12-10] MEDS ORDERED: LEVOFLOXACIN 750MG PREMIX 150 ML IV ONE (07:15)
[2017-12-10] MEDS ORDERED: NITROGLYCERIN 0.4MG TABLET SL SL PRN (07:15)
[2017-12-10] MEDS ORDERED: KETOROLAC 15MG/ML VIAL IV ONE (07:15)
[2017-12-10 07:23] LABS: CLARITY URINE CLEAR (CLEAR); COLOR URINE YELLOW (YELLOW); KETONES URINE TRACE (NEGATIVE); LEUKOCYTE ESTERASE URINE 2+ (NEGATIVE); NITRITE URINE NEGATIVE (NEGATIVE); OCCULT BLOOD URINE TRACE (NEGATIVE); PROTEIN URINE NEGATIVE (NEGATIVE); SPECIFIC GRAVITY URINE 1.023 (1.005-1.030); UROBILINOGEN URINE 0.2 E.U./dL (0.2-1.0)
[2017-12-10 07:32] LABS: BASOPHILS % 0.7 % (0.0-2.0); EOSINOPHILS % 0.6 % (0.0-5.0); HEMATOCRIT. 39.3 % (36.0-48.0); HEMOGLOBIN. 12.9 g/dL (12.0-16.0); LYMPHOCYTES % 20.2 % (20.0-50.0); MEAN CORPUSCULAR HEMOGLOBIN 30.5 pg (28.0-32.0); MEAN CORPUSCULAR VOLUME 92.9 fL (81.0-99.0); MEAN PLATELET VOLUME 8.1 fl (7.4-10.4); MONOCYTES % 7.8 % (2.0-8.0); NEUTROPHILS % 70.7 % (40.0-76.0); PLATELET 272 x1000/uL (130-400); RED BLOOD CELL COUNT 4.23 mill/uL (4.2-5.4); RED CELL DISTRIBUTION WIDTH 14.1 % (11.6-14.6)
[2017-12-10 07:41] LABS: PARTIAL THROMBOPLASTIN TIME 25.2 sec (23.4-31.0); PROTHROMBIN TIME 10.7 sec (9.4-11.6)
[2017-12-10 07:49] LABS: CHLORIDE 105 mEq/L (98-107)
[2017-12-10 10:45] VITALS: BP_SYST 110; BP_DIAS 77; BP_DIAS 78
[2017-12-10] MEDS ORDERED: DEXTROSE 50% WATER 50ML SYRINGE IV PRN (11:45)
[2017-12-10] MEDS: BLOOD SUGAR DIAGNOSTIC STRIP TEST SCH ×3 (12:10→21:51)
[2017-12-10] MEDS: ENOXAPARIN 40MG/0.4ML SYR SUBCUT SCH (13:11)
[2017-12-10] MEDS: INSULIN LISPRO 100 UNITS/ML SUBCUT SCH ×3 (13:12→21:00)
[2017-12-10] MEDS: CEFTRIAXONE 1 G PREMIX 50 ML IV SCH (13:13)
[2017-12-10] MEDS: ALPRAZOLAM 0.5 MG TABLET PO SCH ×2 (13:13→20:06)
[2017-12-10] MEDS: HYDROCODONE/ACETAMINOPHEN 5/325MG TABLET PO PRN ×2 (13:14→18:12)
[2017-12-10 16:00] VITALS: BP 104/63
[2017-12-10] MEDS: METHYLPREDNISOLONE SOD SUCC 40 MG/ML VIAL IV SCH ×2 (16:01→22:29)
[2017-12-10] MEDS: AZITHROMYCIN 500 MG in DEXT 5% WATER 250 ML IV SCH (16:01)
[2017-12-10 20:00] VITALS: BP 106/65
[2017-12-10] MEDS: IPRATROPIUM/ALBUTEROL 0.5-3(2.5)MG/3ML NEB HHN SCH (23:54)
[2017-12-11] VITALS: BP 110/67
[2017-12-11] MEDS: IPRATROPIUM/ALBUTEROL 0.5-3(2.5)MG/3ML NEB HHN SCH ×3 (03:40→20:04)
[2017-12-11 04:00] VITALS: BP 113/71
[2017-12-11] MEDS: HYDROCODONE/ACETAMINOPHEN 5/325MG TABLET PO PRN ×4 (04:13→17:53)
[2017-12-11] MEDS: METHYLPREDNISOLONE SOD SUCC 40 MG/ML VIAL IV SCH ×3 (06:08→23:06)
[2017-12-11] MEDS: BLOOD SUGAR DIAGNOSTIC STRIP TEST SCH ×4 (06:15→21:33)
[2017-12-11] MEDS: INSULIN LISPRO 100 UNITS/ML SUBCUT SCH ×4 (06:35→21:00)
[2017-12-11 07:34] LABS: HEMATOCRIT. 39.4 % (36.0-48.0); HEMOGLOBIN. 12.9 g/dL (12.0-16.0); MEAN CORPUSCULAR HEMOGLOBIN 30.3 pg (28.0-32.0); MEAN CORPUSCULAR VOLUME 92.5 fL (81.0-99.0); MEAN PLATELET VOLUME 8.9 fl (7.4-10.4); PLATELET 260 x1000/uL (130-400); RED BLOOD CELL COUNT 4.27 mill/uL (4.2-5.4); RED CELL DISTRIBUTION WIDTH 14.1 % (11.6-14.6)
[2017-12-11 08:00] VITALS: BP 104/74
[2017-12-11 08:01] LABS: CHLORIDE 107 mEq/L (98-107)
[2017-12-11] MEDS: ISOSORBIDE MONONITRATE 30MG TABLET SR 24HR PO SCH (09:00)
[2017-12-11] MEDS: ALPRAZOLAM 0.5 MG TABLET PO SCH ×2 (09:32→23:06)
[2017-12-11] MEDS: ASPIRIN 325MG TABLET PO SCH (09:32)
[2017-12-11] MEDS: ENOXAPARIN 40MG/0.4ML SYR SUBCUT SCH (09:32)
[2017-12-11 12:00] VITALS: BP 116/72
[2017-12-11] MEDS: CEFTRIAXONE 1 G PREMIX 50 ML IV SCH (13:59)
[2017-12-11 14:46] LABS: PLATELET ESTIMATE NORMAL
[2017-12-11] MEDS: AZITHROMYCIN 500 MG in DEXT 5% WATER 250 ML IV SCH (15:01)
[2017-12-11 16:00] VITALS: BP 116/70
[2017-12-11 20:00] VITALS: BP 116/71
[2017-12-12] VITALS (7 sets, daily range): BP systolic 97–112; BP diastolic 60–75
[2017-12-12] MEDS: IPRATROPIUM/ALBUTEROL 0.5-3(2.5)MG/3ML NEB HHN SCH ×6 (00:07→20:33)
[2017-12-12] MEDS: HYDROCODONE/ACETAMINOPHEN 5/325MG TABLET PO PRN ×5 (00:27→18:34)
[2017-12-12] MEDS: METHYLPREDNISOLONE SOD SUCC 40 MG/ML VIAL IV SCH ×3 (06:20→21:51)
[2017-12-12] MEDS: BLOOD SUGAR DIAGNOSTIC STRIP TEST SCH ×4 (06:23→20:49)
[2017-12-12] MEDS: INSULIN LISPRO 100 UNITS/ML SUBCUT SCH ×4 (06:23→20:49)
[2017-12-12] MEDS: ENOXAPARIN 40MG/0.4ML SYR SUBCUT SCH (08:22)
[2017-12-12] MEDS: ALPRAZOLAM 0.5 MG TABLET PO SCH ×2 (08:22→20:21)
[2017-12-12] MEDS: ASPIRIN 325MG TABLET PO SCH (08:22)
[2017-12-12] MEDS: ISOSORBIDE MONONITRATE 30MG TABLET SR 24HR PO SCH (08:44)
[2017-12-12] MEDS: AZITHROMYCIN 500 MG in DEXT 5% WATER 250 ML IV SCH (14:10)
[2017-12-12] MEDS: CEFTRIAXONE 1 G PREMIX 50 ML IV SCH (16:14)
[2018-04-04] MEDS ORDERED: RIVA20TA PO (22:39)
[2018-04-04] MEDS ORDERED: DILT240C92 PO (22:40)
[2018-04-04] MEDS ORDERED: ALPR1TAB2 PO (23:07)
[2018-06-24] MEDS ORDERED: ASPI-986 MT (13:45)
== END 2017-12-12 22:00 | disposition home or self-care (01) | DRG 139 ==
LOC: ER 07:12 → 8WST 08:22 → EDBEDREQTM 08:26 → EDBEDREQ 08:26 → ENRESERV 10:17
PROVIDERS: ADMIT Internal Medicine; ATTEND Internal Medicine
DX: J18.1 Lobar pneumonia, unspecified organism (principal); R65.10 Systemic inflammatory response syndrome (SIRS) of non-infectious origin without acute organ dysfunction; J44.0 Chronic obstructive pulmonary disease with (acute) lower respiratory infection; J45.901 Unspecified asthma with (acute) exacerbation; J44.1 Chronic obstructive pulmonary disease with (acute) exacerbation; E11.9 Type 2 diabetes mellitus without complications; E78.5 Hyperlipidemia, unspecified; F41.9 Anxiety disorder, unspecified; I25.10 Atherosclerotic heart disease of native coronary artery without angina pectoris; Z82.49 Family history of ischemic heart disease and other diseases of the circulatory system; Z87.891 Personal history of nicotine dependence; Z95.1 Presence of aortocoronary bypass graft; Z88.6 Allergy status to analgesic agent; Z79.82 Long term (current) use of aspirin; Z91.012 Allergy to eggs; Z79.899 Other long term (current) drug therapy; Z90.49 Acquired absence of other specified parts of digestive tract
CPT/HCPCS: 36415; 71045; 80048; 82962; 83605; 83880; 84484; 87804; 93005; 94640; 94644; 94664; 96365; 96375; 99285; J0456; J0696; J1650; J1815; J1885; J1956; J2920; J2930; J7040; J7060; J7611; J7620

== ENCOUNTER 2018-05-15 00:59 | Emergency (ER) | payer OTHER ==
[~2018-05-15] VITALS: Ht 165.1 cm; Wt 77.0 kg
[~2018-05-15 00:59] MED LIST changes: +ALPR1TAB2 PO; -ALPR2TAB2 PO; +DILT240C92 PO; -METF-414 PO; +METF500T6 PO; +RIVA20TA PO
[2018-05-15] MEDS ORDERED: METHYLPREDNISOLONE SOD SUCC 125 MG/2 ML VIAL IV STA (02:09)
[2018-05-15] MEDS ORDERED: ALBUTEROL (0.083%) 2.5MG/3ML NEB HHN STA (02:09)
[2018-05-15] MEDS ORDERED: ONDANSETRON HCL 4MG/2ML VIAL IV STA (02:09)
[2018-05-15] MEDS ORDERED: MORPHINE SULFATE 4 MG/ML CPJ (NOT FOR IM USE) IV STA (02:09)
[2018-05-15] MEDS ORDERED: IPRATROPIUM BROMIDE (0.02%) 0.5MG/2.5ML NEB HHN STA (02:09)
[2018-05-15 02:25] LABS: BASOPHILS % 0.9 % (0.0-2.0); EOSINOPHILS % 0.8 % (0.0-5.0); HEMATOCRIT. 38.7 % (36.0-48.0); HEMOGLOBIN. 12.5 g/dL (12.0-16.0); LYMPHOCYTES % 36.4 % (20.0-50.0); MEAN CORPUSCULAR HEMOGLOBIN 28.3 pg (28.0-32.0); MEAN CORPUSCULAR VOLUME 87.6 fL (81.0-99.0); MEAN PLATELET VOLUME 7.9 fl (7.4-10.4); MONOCYTES % 9.8 % (2.0-8.0); NEUTROPHILS % 52.1 % (40.0-76.0); PLATELET 225 x1000/uL (130-400); RED BLOOD CELL COUNT 4.41 mill/uL (4.2-5.4); RED CELL DISTRIBUTION WIDTH 17.2 % (11.6-14.6)
[2018-05-15 02:31] LABS: CHLORIDE 107 mEq/L (98-107)
[2018-05-15 05:14] VITALS: BP 101/65
== END 2018-05-15 05:30 | disposition home or self-care (01) ==
LOC: ER 01:06
DX: S80.02XA Contusion of left knee, initial encounter (principal); J44.1 Chronic obstructive pulmonary disease with (acute) exacerbation; F41.9 Anxiety disorder, unspecified; E11.9 Type 2 diabetes mellitus without complications; E78.00 Pure hypercholesterolemia, unspecified; I25.2 Old myocardial infarction; F12.10 Cannabis abuse, uncomplicated; Z90.49 Acquired absence of other specified parts of digestive tract; Z79.84 Long term (current) use of oral hypoglycemic drugs; Z95.5 Presence of coronary angioplasty implant and graft; Z79.899 Other long term (current) drug therapy; W18.39XA Other fall on same level, initial encounter; Y93.89 Activity, other specified; Y92.89 Other specified places as the place of occurrence of the external cause; Y99.8 Other external cause status
CPT/HCPCS: 36415; 71045; 73562; 80053; 83880; 84484; 85025; 93005; 94640; 96374; 96375; 99285; J2270; J2405; J2930; J7611; Z7610

== ENCOUNTER 2018-06-19 18:14 | Inpatient (IN) | payer OTHER ==
[~2018-06-19] VITALS: Ht 165.1 cm; Wt 81.2 kg
[2018-06-19 19:05] LABS: CHLORIDE 107 mEq/L (98-107)
[2018-06-19 19:06] LABS: INR 1.2; PROTHROMBIN TIME 12.2 sec (9.1-11.1)
[2018-06-19 19:07] LABS: BASOPHILS % 0.4 % (0.0-2.0); EOSINOPHILS % 1.3 % (0.0-5.0); HEMATOCRIT. 39.5 % (36.0-48.0); LYMPHOCYTES % 24.4 % (20.0-50.0); MEAN CORPUSCULAR HEMOGLOBIN 28.4 pg (28.0-32.0); MEAN CORPUSCULAR VOLUME 86.5 fL (81.0-99.0); MEAN PLATELET VOLUME 8.3 fl (7.4-10.4); MONOCYTES % 6.3 % (2.0-8.0); NEUTROPHILS % 67.6 % (40.0-76.0); PLATELET 243 x1000/uL (130-400); RED BLOOD CELL COUNT 4.57 mill/uL (4.2-5.4); RED CELL DISTRIBUTION WIDTH 17.2 % (11.6-14.6)
[2018-06-19] MEDS ORDERED: ALBUTEROL (0.083%) 2.5MG/3ML NEB HHN STA (19:37)
[2018-06-19] MEDS ORDERED: IPRATROPIUM BROMIDE (0.02%) 0.5MG/2.5ML NEB HHN STA (19:37)
[2018-06-19] MEDS ORDERED: MAGNESIUM 2 G PREMIX 50 ML IV ONE (19:45)
[2018-06-19] MEDS ORDERED: ALBUTEROL (0.5%) 2.5MG/0.5ML NEB HHN ONE (19:56)
[2018-06-19] MEDS ORDERED: HYDROCODONE/ACETAMINOPHEN 5/325MG TABLET PO ONE (20:00)
[2018-06-19 21:24] LABS: CLARITY URINE CLEAR (CLEAR); COLOR URINE YELLOW (YELLOW); KETONES URINE TRACE (NEGATIVE); LEUKOCYTE ESTERASE URINE TRACE (NEGATIVE); NITRITE URINE NEGATIVE (NEGATIVE); OCCULT BLOOD URINE NEGATIVE (NEGATIVE); PROTEIN URINE NEGATIVE (NEGATIVE); SPECIFIC GRAVITY URINE 1.028 (1.005-1.030); UROBILINOGEN URINE 0.2 E.U./dL (0.2-1.0)
[2018-06-19 21:43] LABS: *AMPHETAMINES SCREEN URINE NEGATIVE (NEGATIVE); *BARBITURATES SCREEN URINE NEGATIVE (NEGATIVE); *BENZODIAZEPINES SCREEN URINE NEGATIVE (NEGATIVE); *COCAINE SCREEN URINE PRESUMTIVE POSITIVE (NEGATIVE); METHADONE URINE SCREEN NEGATIVE (NEGATIVE); OPIATES URINE SCREEN NEGATIVE (NEGATIVE)
[2018-06-19 21:44] LABS: CANNABINOID URINE SCREEN PRESUMTIVE POSITIVE (NEGATIVE); PHENCYCLIDINE URINE SCREEN NEGATIVE (NEGATIVE)
[2018-06-19] MEDS ORDERED: ACETAMINOPHEN 325MG TABLET PO PRN (21:45)
[2018-06-19] MEDS ORDERED: GUAIFENESIN 200MG/10ML SUGAR FREE UDC PO PRN (21:45)
[2018-06-19] MEDS ORDERED: ONDANSETRON HCL 4MG/2ML VIAL IV PRN (21:45)
[2018-06-19] MEDS ORDERED: DIPHENHYDRAMINE 50MG/ML VIAL IV PRN (21:45)
[2018-06-19] MEDS ORDERED: IPRATROPIUM/ALBUTEROL 0.5-3(2.5)MG/3ML NEB INH PRN (21:45)
[2018-06-19] MEDS ORDERED: DOCUSATE SODIUM 100MG CAPSULE PO PRN (21:45)
[2018-06-19] MEDS ORDERED: MAGNESIUM/ALUMINUM HYDROXIDE/SIMETHICONE 30ML UDC PO PRN (21:45)
[2018-06-19] MEDS ORDERED: NA PHOS,M-B/NA PHOS,DI-BA ENEMA 118ML PR PRN (21:45)
[2018-06-19] MEDS ORDERED: HYDROCODONE/ACETAMINOPHEN 10/325MG TABLET PO PRN (21:45)
[2018-06-19] MEDS ORDERED: LORAZEPAM 2MG/ML CPJ IV PRN (21:45)
[2018-06-19] MEDS ORDERED: LEVOFLOXACIN 500MG PREMIX 100 ML IV SCH (21:45)
[2018-06-19] MEDS ORDERED: CLONIDINE 0.1MG TABLET PO PRN (21:45)
[2018-06-19] MEDS ORDERED: METHYLPREDNISOLONE SOD SUCC 125 MG/2 ML VIAL IV NR (22:15)
[2018-06-19] MEDS ORDERED: LEVOFLOXACIN 500MG PREMIX 100 ML IV NR (22:15)
[2018-06-19] MEDS: HYDROMORPHONE HCL/PF 2MG/ML CPJ IV PRN (22:27)
[2018-06-19 23:30] VITALS: BP 130/67
[2018-06-20] VITALS (8 sets, daily range): BP systolic 107–130; BP diastolic 64–74
[2018-06-20 00:29] LABS: CHLORIDE 106 mEq/L (98-107)
[2018-06-20] MEDS ORDERED: METF-815 PO (00:43)
[2018-06-20] MEDS ORDERED: PVCXPC MT (00:48)
[2018-06-20] MEDS ORDERED: DEXTROSE 50% WATER 50ML SYRINGE IV PRN (01:15)
[2018-06-20] MEDS ORDERED: MEDICATION NOT ON FORMULARY EA (Hydrocodone Bit/Acetaminophen (Hydrocodon-Acetaminoph 7. PO PRN (01:30)
[2018-06-20] MEDS: ATORVASTATIN CALCIUM 40MG TABLET PO SCH ×2 (01:37→21:06)
[2018-06-20] MEDS: ALPRAZOLAM 0.5 MG TABLET PO SCH ×3 (01:37→21:06)
[2018-06-20] MEDS ORDERED: GUAIFENESIN/CODEINE 200-20MG/10ML UDC PO PRN (02:30)
[2018-06-20] MEDS: METHYLPREDNISOLONE SOD SUCC 125 MG/2 ML VIAL IV SCH ×4 (06:30→23:43)
[2018-06-20] MEDS: BLOOD SUGAR DIAGNOSTIC STRIP TEST SCH ×4 (06:30→21:06)
[2018-06-20] MEDS: INSULIN LISPRO 100 UNITS/ML SUBCUT SCH ×4 (06:40→21:35)
[2018-06-20 07:25] LABS: CHLORIDE 105 mEq/L (98-107)
[2018-06-20 07:34] LABS: HEMATOCRIT. 37.4 % (36.0-48.0); HEMOGLOBIN. 12.3 g/dL (12.0-16.0); MEAN CORPUSCULAR HEMOGLOBIN 28.8 pg (28.0-32.0); MEAN CORPUSCULAR VOLUME 87.6 fL (81.0-99.0); MEAN PLATELET VOLUME 8.7 fl (7.4-10.4); PLATELET 185 x1000/uL (130-400); RED BLOOD CELL COUNT 4.27 mill/uL (4.2-5.4); RED CELL DISTRIBUTION WIDTH 17.6 % (11.6-14.6)
[2018-06-20 07:41] LABS: LDL CHOLESTEROL 77 mg/dL (5-100)
[2018-06-20 07:44] LABS: HDL CHOLESTEROL 63 mg/dL (40-59)
[2018-06-20] MEDS ORDERED: MEDICATION NOT ON FORMULARY EA (Atorvastatin Calcium (Lipitor) 1 TAB) PO SCH (09:00)
[2018-06-20] MEDS ORDERED: ENOXAPARIN 40MG/0.4ML SYR SUBCUT SCH (09:00)
[2018-06-20] MEDS ORDERED: MEDICATION NOT ON FORMULARY EA (Rivaroxaban (Xarelto) 20 MG) PO SCH (09:00)
[2018-06-20] MEDS ORDERED: DILTIAZEM HCL 360 MG PO SCH (09:00)
[2018-06-20] MEDS: ASPIRIN 81MG EC TABLET PO SCH (10:20)
[2018-06-20] MEDS: DILTIAZEM HCL 360MG CAPSULE SA 24HR PO SCH (10:20)
[2018-06-20] MEDS: HYDROCODONE/APAP 7.5/325MG 1 TAB TABLET PO PRN (10:21)
[2018-06-20 10:37] LABS: T4 FREE 0.81 ng/dL (0.76-1.46)
[2018-06-20 16:09] LABS: CREATINE KINASE MB FRACTION 1.7 ng/mL (0.5-3.6)
[2018-06-20 16:15] LABS: CREATINE KINASE 44 IU/L (26-192)
[2018-06-20] MEDS: RIVAROXABAN 20 MG TABLET PO SCH (18:43)
[2018-06-20] MEDS: HYDROMORPHONE HCL/PF 2MG/ML CPJ IV PRN (19:41)
[2018-06-20 20:50] LABS: PLATELET ESTIMATE NORMAL
[2018-06-20] MEDS ORDERED: ATORVASTATIN CALCIUM 40MG TABLET PO SCH (21:00)
[2018-06-20 23:41] LABS: CREATINE KINASE 37 IU/L (26-192)
[2018-06-20 23:42] LABS: CREATINE KINASE MB FRACTION 1.6 ng/mL (0.5-3.6)
[2018-06-20] MEDS: LEVOFLOXACIN 500MG PREMIX 100 ML IV SCH (23:43)
[2018-06-21] VITALS (7 sets, daily range): BP systolic 109–132; BP diastolic 62–83
[2018-06-21] MEDS: HYDROMORPHONE HCL/PF 2MG/ML CPJ IV PRN ×4 (02:53→20:19)
[2018-06-21] MEDS: BLOOD SUGAR DIAGNOSTIC STRIP TEST SCH ×4 (06:13→21:53)
[2018-06-21] MEDS: METHYLPREDNISOLONE SOD SUCC 125 MG/2 ML VIAL IV SCH ×4 (06:13→23:29)
[2018-06-21] MEDS: INSULIN LISPRO 100 UNITS/ML SUBCUT SCH ×4 (07:02→21:58)
[2018-06-21] MEDS: ALPRAZOLAM 0.5 MG TABLET PO SCH ×2 (09:00→21:53)
[2018-06-21] MEDS: ASPIRIN 81MG EC TABLET PO SCH (09:15)
[2018-06-21] MEDS: DILTIAZEM HCL 360MG CAPSULE SA 24HR PO SCH (09:15)
[2018-06-21 09:17] LABS: CREATINE KINASE 29 IU/L (26-192)
[2018-06-21 09:18] LABS: CREATINE KINASE MB FRACTION 1.4 ng/mL (0.5-3.6)
[2018-06-21] MEDS: RIVAROXABAN 20 MG TABLET PO SCH (17:19)
[2018-06-21] MEDS: ATORVASTATIN CALCIUM 40MG TABLET PO SCH (20:18)
[2018-06-21] MEDS: LEVOFLOXACIN 500MG PREMIX 100 ML IV SCH (23:30)
[2018-06-22] MEDS: HYDROMORPHONE HCL/PF 2MG/ML CPJ IV PRN ×3 (02:07→13:20)
[2018-06-22] MEDS: BLOOD SUGAR DIAGNOSTIC STRIP TEST SCH ×3 (06:41→16:45)
[2018-06-22] MEDS: METHYLPREDNISOLONE SOD SUCC 125 MG/2 ML VIAL IV SCH ×3 (06:41→18:10)
[2018-06-22] MEDS: INSULIN LISPRO 100 UNITS/ML SUBCUT SCH ×3 (06:54→18:11)
[2018-06-22 08:00] VITALS: BP 126/79
[2018-06-22] MEDS: ALPRAZOLAM 0.5 MG TABLET PO SCH (08:44)
[2018-06-22] MEDS: ASPIRIN 81MG EC TABLET PO SCH (08:44)
[2018-06-22] MEDS: HYDROCODONE/APAP 7.5/325MG 1 TAB TABLET PO PRN ×2 (09:41→17:23)
[2018-06-22 12:00] VITALS: BP 115/74
[2018-06-22 16:00] VITALS: BP 140/76
[2018-06-22 17:04] VITALS: BP 140/76
[2018-06-22 17:23] VITALS: BP 140/76
[2018-06-22] MEDS: RIVAROXABAN 20 MG TABLET PO SCH (18:11)
[2018-06-22] MEDS ORDERED: DILTIAZEM HCL 180MG CAPSULE CD 24HR PO SCH (21:00)
[2018-06-24] MEDS ORDERED: ASPI-986 MT (13:45)
== END 2018-06-22 19:47 | disposition home or self-care (01) | DRG 133 ==
LOC: ER 20:37 → 5WST 20:43 → EDBEDREQTM 20:50 → EDBEDREQ 20:50 → ENRESERV 22:32
PROVIDERS: ADMIT Internal Medicine; ATTEND Internal Medicine
PROC: 5A09457 Assistance with Respiratory Ventilation, 24-96 Consecutive Hours, Continuous Positive Airway Pressure (ICD-10-PCS; principal; 2018-06-20)
DX: J96.00 Acute respiratory failure, unspecified whether with hypoxia or hypercapnia (principal); J18.9 Pneumonia, unspecified organism; I11.0 Hypertensive heart disease with heart failure; I50.9 Heart failure, unspecified; J44.0 Chronic obstructive pulmonary disease with (acute) lower respiratory infection; G47.33 Obstructive sleep apnea (adult) (pediatric); F41.9 Anxiety disorder, unspecified; I25.10 Atherosclerotic heart disease of native coronary artery without angina pectoris; E78.5 Hyperlipidemia, unspecified; J44.1 Chronic obstructive pulmonary disease with (acute) exacerbation; E78.00 Pure hypercholesterolemia, unspecified; E11.9 Type 2 diabetes mellitus without complications; Z95.5 Presence of coronary angioplasty implant and graft; I25.2 Old myocardial infarction; Z90.49 Acquired absence of other specified parts of digestive tract; Z86.73 Personal history of transient ischemic attack (TIA), and cerebral infarction without residual deficits; Z87.891 Personal history of nicotine dependence; Z79.01 Long term (current) use of anticoagulants; Z79.84 Long term (current) use of oral hypoglycemic drugs; Z79.899 Other long term (current) drug therapy; Z87.74 Personal history of (corrected) congenital malformations of heart and circulatory system
CPT/HCPCS: 36415; 71045; 80048; 80053; 80061; 80305; 81003; 82550; 82553; 82962; 83036; 83690; 83880; 84439; 84443; 84484; 85025; 85379; 85610; 93005; 93306; 93970; 94644; 94660; 96365; 96366; 96367; 96375; 99285; J1170; J1815; J1956; J2930; J7050; J7611

== ENCOUNTER 2018-08-01 20:56 | Inpatient (IN) | payer MEDICAID, OTHER ==
[~2018-08-01] VITALS: Ht 165.1 cm; Wt 75.7 kg
[~2018-08-01 20:56] MED LIST changes: +ASPI-986 MT; -ASPI-986 PO; -ISOS60TA4 PO; +METF-815 PO; -METF500T6 PO; -P50 PO; -PROM25TA13 PO; +PVCXPC MT; -TIOT18CA3 INH
[2018-08-01] MEDS ORDERED: KETOROLAC 30MG/ML VIAL IV STA (21:33)
[2018-08-01] MEDS ORDERED: SODIUM CHLORIDE 0.9% 1,000 ML IV ONE (21:33)
[2018-08-01] MEDS ORDERED: ONDANSETRON HCL 4MG/2ML INJ IV STA (21:33)
[2018-08-01 22:42] LABS: BASOPHILS % 0.5 % (0.0-2.0); EOSINOPHILS % 0.5 % (0.0-5.0); HEMATOCRIT. 43.1 % (36.0-48.0); HEMOGLOBIN. 13.9 g/dL (12.0-16.0); LYMPHOCYTES % 12.2 % (20.0-50.0); MEAN CORPUSCULAR HEMOGLOBIN 28.4 pg (28.0-32.0); MEAN PLATELET VOLUME 8.6 fl (7.4-10.4); MONOCYTES % 6.6 % (2.0-8.0); NEUTROPHILS % 80.2 % (40.0-76.0); PLATELET 244 x1000/uL (130-400)
[2018-08-01 22:47] LABS: CHLORIDE 103 mEq/L (98-107)
[2018-08-01 22:49] LABS: CLARITY URINE CLEAR (CLEAR); COLOR URINE YELLOW (YELLOW); KETONES URINE NEGATIVE (NEGATIVE); LEUKOCYTE ESTERASE URINE 2+ (NEGATIVE); NITRITE URINE NEGATIVE (NEGATIVE); OCCULT BLOOD URINE NEGATIVE (NEGATIVE); PH URINE 5.5 (4.5-8.0); PROTEIN URINE NEGATIVE (NEGATIVE); SPECIFIC GRAVITY URINE 1.022 (1.005-1.030)
[2018-08-01 22:50] LABS: INR 1.4; PROTHROMBIN TIME 14.2 sec (9.1-11.1)
[2018-08-01] MEDS ORDERED: METRONIDAZOLE 500 MG PREMIX 100 ML IV ONE (23:30)
[2018-08-01] MEDS ORDERED: CEFTRIAXONE 1 G PREMIX 50 ML IV ONE (23:30)
[2018-08-02 04:00] VITALS: BP 98/66
[2018-08-02] MEDS ORDERED: MORPHINE SULFATE 4 MG/ML CPJ (NOT FOR IM USE) IV PRN (04:45)
[2018-08-02] MEDS ORDERED: DEXTROSE 50% WATER 50ML SYRINGE IV PRN (04:45)
[2018-08-02] MEDS ORDERED: SODIUM CHLORIDE 0.9% 1,000 ML IV SCH (06:00)
[2018-08-02] MEDS: BLOOD SUGAR DIAGNOSTIC STRIP TEST SCH ×4 (07:20→20:44)
[2018-08-02] MEDS: INSULIN LISPRO 100 UNITS/ML SUBCUT SCH ×4 (07:50→20:52)
[2018-08-02 08:00] VITALS: BP 110/71
[2018-08-02] MEDS: ONDANSETRON HCL 4MG/2ML INJ IV PRN (09:15)
[2018-08-02] MEDS: HYDROMORPHONE HCL/PF 2MG/ML CPJ IV PRN ×3 (09:17→20:59)
[2018-08-02] MEDS ORDERED: IPRATROPIUM/ALBUTEROL 0.5-3(2.5)MG/3ML NEB HHN PRN (10:30)
[2018-08-02 11:16] LABS: BASOPHILS % 0.5 % (0.0-2.0); EOSINOPHILS % 0.8 % (0.0-5.0); HEMATOCRIT. 40.9 % (36.0-48.0); HEMOGLOBIN. 13.1 g/dL (12.0-16.0); LYMPHOCYTES % 16.1 % (20.0-50.0); MEAN CORPUSCULAR HEMOGLOBIN 28.5 pg (28.0-32.0); MEAN CORPUSCULAR VOLUME 89.2 fL (81.0-99.0); MEAN PLATELET VOLUME 8.4 fl (7.4-10.4); MONOCYTES % 8.2 % (2.0-8.0); NEUTROPHILS % 74.4 % (40.0-76.0); PLATELET 194 x1000/uL (130-400); RED BLOOD CELL COUNT 4.59 mill/uL (4.2-5.4); RED CELL DISTRIBUTION WIDTH 16.1 % (11.6-14.6)
[2018-08-02] MEDS: DILTIAZEM HCL 120MG CAPSULE CD 24HR PO SCH ×2 (11:25→20:24)
[2018-08-02 11:55] LABS: CHLORIDE 109 mEq/L (98-107)
[2018-08-02 12:00] VITALS: BP 106/73
[2018-08-02] MEDS: ASPIRIN 81MG TABLET PO SCH (12:04)
[2018-08-02] MEDS: PANTOPRAZOLE SODIUM 40 MG/VIAL IV SCH (12:06)
[2018-08-02] MEDS: LEVOFLOXACIN 500MG PREMIX 100 ML IV SCH (12:38)
[2018-08-02] MEDS: METRONIDAZOLE 500 MG PREMIX 100 ML IV SCH ×2 (14:30→20:45)
[2018-08-02 16:00] VITALS: BP 108/70
[2018-08-02] MEDS: RIVAROXABAN 20 MG TABLET PO SCH (18:34)
[2018-08-02 20:00] VITALS: BP 119/73
[2018-08-02] MEDS: ATORVASTATIN CALCIUM 40MG TABLET PO SCH (20:24)
[2018-08-03] VITALS (8 sets, daily range): BP systolic 105–122; BP diastolic 58–76
[2018-08-03] MEDS: ALPRAZOLAM 0.5 MG TABLET PO PRN (03:05)
[2018-08-03 05:16] LABS: CHLORIDE 107 mEq/L (98-107)
[2018-08-03 06:14] LABS: BASOPHILS % 0.4 % (0.0-2.0); EOSINOPHILS % 0.7 % (0.0-5.0); HEMATOCRIT. 39.4 % (36.0-48.0); LYMPHOCYTES % 16.9 % (20.0-50.0); MEAN CORPUSCULAR HEMOGLOBIN 29.3 pg (28.0-32.0); MEAN CORPUSCULAR VOLUME 88.9 fL (81.0-99.0); MEAN PLATELET VOLUME 8.7 fl (7.4-10.4); MONOCYTES % 7.2 % (2.0-8.0); NEUTROPHILS % 74.8 % (40.0-76.0); PLATELET 193 x1000/uL (130-400); RED BLOOD CELL COUNT 4.43 mill/uL (4.2-5.4); RED CELL DISTRIBUTION WIDTH 15.9 % (11.6-14.6)
[2018-08-03] MEDS: BLOOD SUGAR DIAGNOSTIC STRIP TEST SCH ×4 (06:16→20:18)
[2018-08-03] MEDS: METRONIDAZOLE 500 MG PREMIX 100 ML IV SCH ×3 (06:17→21:35)
[2018-08-03] MEDS: HYDROMORPHONE HCL/PF 2MG/ML CPJ IV PRN ×3 (06:24→20:17)
[2018-08-03] MEDS: INSULIN LISPRO 100 UNITS/ML SUBCUT SCH ×4 (06:30→20:18)
[2018-08-03] MEDS: ASPIRIN 81MG TABLET PO SCH (08:33)
[2018-08-03] MEDS: PANTOPRAZOLE SODIUM 40 MG/VIAL IV SCH (08:33)
[2018-08-03] MEDS: DILTIAZEM HCL 120MG CAPSULE CD 24HR PO SCH ×2 (08:34→21:00)
[2018-08-03] MEDS: LEVOFLOXACIN 500MG PREMIX 100 ML IV SCH (13:09)
[2018-08-03] MEDS: ONDANSETRON HCL 4MG/2ML INJ IV PRN (13:19)
[2018-08-03] MEDS: RIVAROXABAN 20 MG TABLET PO SCH (17:11)
[2018-08-03] MEDS: ATORVASTATIN CALCIUM 40MG TABLET PO SCH (20:17)
[2018-08-04] VITALS: BP 126/66
[2018-08-04] MEDS: ALPRAZOLAM 0.5 MG TABLET PO PRN (00:38)
[2018-08-04 04:00] VITALS: BP 138/79
[2018-08-04] MEDS: HYDROMORPHONE HCL/PF 2MG/ML CPJ IV PRN (05:30)
[2018-08-04] MEDS: METRONIDAZOLE 500 MG PREMIX 100 ML IV SCH (05:31)
[2018-08-04] MEDS: INSULIN LISPRO 100 UNITS/ML SUBCUT SCH ×2 (07:50→12:50)
[2018-08-04] MEDS: BLOOD SUGAR DIAGNOSTIC STRIP TEST SCH ×2 (07:57→12:20)
[2018-08-04 08:00] VITALS: BP_SYST 105; BP_SYST 120; BP_DIAS 59; BP_DIAS 80
[2018-08-04 08:02] VITALS: BP 120/80
[2018-08-04] MEDS: ASPIRIN 81MG TABLET PO SCH (08:31)
[2018-08-04] MEDS: DILTIAZEM HCL 120MG CAPSULE CD 24HR PO SCH (08:31)
[2018-08-04] MEDS ORDERED: FAMOTIDINE 20MG TABLET PO SCH (09:00)
[2018-08-04 11:12] VITALS: BP 120/80
[2018-08-04] MEDS ORDERED: INFLUENZA VIRUS VACCINE(AFLURIA) 0.5ML SYR IM ONE (11:30)
[2018-08-04] MEDS: LEVOFLOXACIN 500MG PREMIX 100 ML IV SCH (12:30)
== END 2018-08-04 13:40 | disposition home or self-care (01) | DRG 133 ==
LOC: ER 20:56 → 6EST 23:43 → EDBEDREQTM 23:45 → EDBEDREQ 23:45 → ENRESERV 08-02 01:55
PROVIDERS: ADMIT Internal Medicine; ATTEND Internal Medicine
DX: J96.00 Acute respiratory failure, unspecified whether with hypoxia or hypercapnia (principal); I11.0 Hypertensive heart disease with heart failure; R65.10 Systemic inflammatory response syndrome (SIRS) of non-infectious origin without acute organ dysfunction; I48.0 Paroxysmal atrial fibrillation; K57.92 Diverticulitis of intestine, part unspecified, without perforation or abscess without bleeding; I50.9 Heart failure, unspecified; J44.9 Chronic obstructive pulmonary disease, unspecified; N39.0 Urinary tract infection, site not specified; K46.9 Unspecified abdominal hernia without obstruction or gangrene; E78.00 Pure hypercholesterolemia, unspecified; G47.33 Obstructive sleep apnea (adult) (pediatric); E11.9 Type 2 diabetes mellitus without complications; I25.10 Atherosclerotic heart disease of native coronary artery without angina pectoris; Z79.01 Long term (current) use of anticoagulants; Z79.82 Long term (current) use of aspirin; Z79.899 Other long term (current) drug therapy; Z90.49 Acquired absence of other specified parts of digestive tract; Z95.1 Presence of aortocoronary bypass graft
CPT/HCPCS: 36415; 74176; 80048; 82962; 90686; 94640; 96374; 96375; 99285; C9113; J0696; J1170; J1885; J1956; J2270; J2405; J3490; J7030; J7050; J7620

== ENCOUNTER 2018-09-18 22:54 | Inpatient (IN) | payer OTHER ==
[~2018-09-18] VITALS: Ht 165.1 cm; Wt 77.1 kg
[2018-09-19] MEDS ORDERED: IPRATROPIUM BROMIDE (0.02%) 0.5MG/2.5ML NEB HHN STA (00:24)
[2018-09-19] MEDS ORDERED: ALBUTEROL (0.083%) 2.5MG/3ML NEB HHN STA (00:24)
[2018-09-19] MEDS ORDERED: METHYLPREDNISOLONE SOD SUCC 125 MG/2 ML VIAL IV STA (00:24)
[2018-09-19] MEDS ORDERED: HYDROCODONE/ACETAMINOPHEN 5/325MG TABLET PO ONE ×2 (00:30→06:45)
[2018-09-19] MEDS ORDERED: PIPERACILLIN/TAZOBACTAM 3.375GM/50ML PREMIX IV SCH (02:29)
[2018-09-19] MEDS: HYDROCODONE/ACETAMINOPHEN 5/325MG TABLET PO PRN ×2 (12:13→18:14)
[2018-09-19 14:10] VITALS: BP 131/72
[2018-09-19] MEDS ORDERED: LEVOFLOXACIN 500MG PREMIX 100 ML IV SCH (15:45)
[2018-09-19] MEDS ORDERED: CLONIDINE 0.1MG TABLET PO PRN (15:45)
[2018-09-19] MEDS ORDERED: ONDANSETRON HCL 4MG/2ML INJ IV PRN (15:45)
[2018-09-19] MEDS ORDERED: GUAIFENESIN 200MG/10ML SUGAR FREE UDC PO PRN (15:45)
[2018-09-19] MEDS ORDERED: GUAIFENESIN/CODEINE 200-20MG/10ML UDC PO PRN (15:45)
[2018-09-19] MEDS ORDERED: ACETAMINOPHEN 325MG TABLET PO PRN (15:45)
[2018-09-19 16:00] VITALS: BP 139/84
[2018-09-19] MEDS ORDERED: LEVOFLOXACIN 500MG PREMIX 100 ML IV NR (18:00)
[2018-09-19 18:02] LABS: HEMATOCRIT. 40.6 % (36.0-48.0); HEMOGLOBIN. 13.1 g/dL (12.0-16.0); MEAN CORPUSCULAR HEMOGLOBIN 28.6 pg (28.0-32.0); MEAN CORPUSCULAR VOLUME 88.6 fL (81.0-99.0); MEAN PLATELET VOLUME 8.1 fl (7.4-10.4); PLATELET 222 x1000/uL (130-400); RED BLOOD CELL COUNT 4.59 mill/uL (4.2-5.4); RED CELL DISTRIBUTION WIDTH 14.8 % (11.6-14.6)
[2018-09-19] MEDS: METHYLPREDNISOLONE SOD SUCC 40 MG/ML VIAL IV SCH ×2 (18:13→23:38)
[2018-09-19 18:17] LABS: PLATELET ESTIMATE NORMAL
[2018-09-19 18:40] LABS: CHLORIDE 106 mEq/L (98-107)
[2018-09-19] MEDS ORDERED: DEXTROSE 50% WATER 50ML SYRINGE IV PRN (19:30)
[2018-09-19 20:00] VITALS: BP 137/85
[2018-09-19] MEDS: IPRATROPIUM/ALBUTEROL 0.5-3(2.5)MG/3ML NEB HHN SCH (20:40)
[2018-09-19] MEDS ORDERED: ENOXAPARIN 40MG/0.4ML SYR SUBCUT SCH (21:00)
[2018-09-19] MEDS: ALPRAZOLAM 0.25 MG TABLET PO SCH (21:24)
[2018-09-19] MEDS: BLOOD SUGAR DIAGNOSTIC STRIP TEST SCH (21:24)
[2018-09-19] MEDS: ATORVASTATIN CALCIUM 40MG TABLET PO SCH (21:24)
[2018-09-19] MEDS: INSULIN LISPRO 100 UNITS/ML SUBCUT SCH (21:27)
[2018-09-19 23:39] VITALS: BP 122/80
[2018-09-20] MEDS: IPRATROPIUM/ALBUTEROL 0.5-3(2.5)MG/3ML NEB HHN SCH ×5 (00:26→21:11)
[2018-09-20 04:00] VITALS: BP 145/88
[2018-09-20] MEDS: HYDROCODONE/ACETAMINOPHEN 5/325MG TABLET PO PRN ×4 (04:45→17:29)
[2018-09-20 06:12] LABS: CHLORIDE 104 mEq/L (98-107)
[2018-09-20] MEDS: BLOOD SUGAR DIAGNOSTIC STRIP TEST SCH ×4 (06:31→20:48)
[2018-09-20 06:36] LABS: HEMATOCRIT. 41.7 % (36.0-48.0); HEMOGLOBIN. 13.7 g/dL (12.0-16.0); MEAN CORPUSCULAR HEMOGLOBIN 29.4 pg (28.0-32.0); MEAN CORPUSCULAR VOLUME 89.1 fL (81.0-99.0); MEAN PLATELET VOLUME 8.4 fl (7.4-10.4); PLATELET 210 x1000/uL (130-400); RED BLOOD CELL COUNT 4.68 mill/uL (4.2-5.4); RED CELL DISTRIBUTION WIDTH 15.1 % (11.6-14.6)
[2018-09-20 08:00] VITALS: BP 123/79
[2018-09-20] MEDS: METHYLPREDNISOLONE SOD SUCC 40 MG/ML VIAL IV SCH ×2 (09:02→17:33)
[2018-09-20] MEDS: INSULIN LISPRO 100 UNITS/ML SUBCUT SCH ×4 (09:11→20:49)
[2018-09-20 12:00] VITALS: BP 127/81
[2018-09-20 16:03] VITALS: BP 116/69
[2018-09-20] MEDS ORDERED: RIVAROXABAN 20 MG TABLET PO SCH (17:00)
[2018-09-20] MEDS ORDERED: LEVOFLOXACIN 500MG PREMIX 100 ML IV SCH (18:00)
[2018-09-20 20:17] LABS: PLATELET ESTIMATE NORMAL
[2018-09-20 20:35] VITALS: BP 112/61
[2018-09-20] MEDS: ALPRAZOLAM 0.25 MG TABLET PO SCH (20:48)
[2018-09-20] MEDS: ATORVASTATIN CALCIUM 40MG TABLET PO SCH (20:48)
[2018-09-21] MEDS: METHYLPREDNISOLONE SOD SUCC 40 MG/ML VIAL IV SCH (01:06)
[2018-09-21 01:16] VITALS: BP 112/61
[2018-09-21] MEDS: HYDROCODONE/ACETAMINOPHEN 5/325MG TABLET PO PRN (01:16)
[2018-09-21] MEDS: IPRATROPIUM/ALBUTEROL 0.5-3(2.5)MG/3ML NEB HHN SCH ×2 (01:17→04:51)
[2018-09-21] MEDS: BLOOD SUGAR DIAGNOSTIC STRIP TEST SCH (06:22)
== END 2018-09-21 08:30 | disposition home or self-care (01) | DRG 140 ==
LOC: ER 22:54 → 6WST 09-19 03:17 → ENRESERV 09-19 12:04
PROVIDERS: ADMIT Internal Medicine; ATTEND Internal Medicine
DX: J44.1 Chronic obstructive pulmonary disease with (acute) exacerbation (principal); J96.20 Acute and chronic respiratory failure, unspecified whether with hypoxia or hypercapnia; I50.9 Heart failure, unspecified; I48.0 Paroxysmal atrial fibrillation; D64.9 Anemia, unspecified; E11.9 Type 2 diabetes mellitus without complications; E78.00 Pure hypercholesterolemia, unspecified; E78.5 Hyperlipidemia, unspecified; G47.33 Obstructive sleep apnea (adult) (pediatric); I25.10 Atherosclerotic heart disease of native coronary artery without angina pectoris; K46.9 Unspecified abdominal hernia without obstruction or gangrene; Z87.891 Personal history of nicotine dependence; Z90.49 Acquired absence of other specified parts of digestive tract; Z79.4 Long term (current) use of insulin
CPT/HCPCS: 36415; 71045; 80048; 82962; 93005; 93970; 94640; 94644; 94660; 99285; J1650; J1815; J1956; J2543; J2920; J2930; J7050; J7611; J7620

== ENCOUNTER 2019-07-28 22:29 | Inpatient (IN) | payer MEDICAID ==
[~2019-07-28] VITALS: Ht 165.1 cm; Wt 87.1 kg
[~2019-07-28 22:29] MED LIST changes: +ASPI-1393 PO; -ASPI-986 MT; -DILT240C92 PO; +DILT300C35 PO; +FURO40TA5 MT; +P20 MT
[2019-07-28] MEDS ORDERED: LORAZEPAM 2MG/ML CPJ IV ONE (23:30)
[2019-07-28] MEDS ORDERED: FENTANYL CITRATE/PF 50MCG/ML 2ML VIAL IV ONE (23:30)
[2019-07-28] MEDS ORDERED: IPRATROPIUM/ALBUTEROL 0.5-3(2.5)MG/3ML NEB HHN ONE (23:30)
[2019-07-29 00:15] LABS: BASOPHILS % 0.5 % (0.0-2.0); EOSINOPHILS % 2.8 % (0.0-5.0); HEMATOCRIT. 41.4 % (36.0-48.0); HEMOGLOBIN. 13.2 g/dL (12.0-16.0); LYMPHOCYTES % 22.7 % (20.0-50.0); MEAN CORPUSCULAR HEMOGLOBIN 29.4 pg (28.0-32.0); MEAN CORPUSCULAR VOLUME 91.9 fL (81.0-99.0); MEAN PLATELET VOLUME 8.4 fl (7.4-10.4); MONOCYTES % 10.4 % (2.0-8.0); NEUTROPHILS % 63.6 % (40.0-76.0); PLATELET 247 x1000/uL (130-400); RED BLOOD CELL COUNT 4.51 mill/uL (4.2-5.4); RED CELL DISTRIBUTION WIDTH 14.9 % (11.6-14.6)
[2019-07-29 00:29] LABS: CHLORIDE 108 mEq/L (98-107)
[2019-07-29 06:00] VITALS: BP 123/83
[2019-07-29 06:18] VITALS: BP 123/83
[2019-07-29] MEDS ORDERED: jenuvia PO (06:40)
[2019-07-29 08:00] VITALS: BP 117/64
[2019-07-29] MEDS ORDERED: GUAIFENESIN 200MG/10ML SUGAR FREE UDC PO PRN (08:00)
[2019-07-29] MEDS ORDERED: DIPHENHYDRAMINE 50MG/ML VIAL IV PRN (08:00)
[2019-07-29] MEDS ORDERED: ENOXAPARIN 40MG/0.4ML SYR SUBCUT SCH (08:00)
[2019-07-29] MEDS ORDERED: IPRATROPIUM/ALBUTEROL 0.5-3(2.5)MG/3ML NEB NEB PRN (08:00)
[2019-07-29] MEDS ORDERED: DOCUSATE SODIUM 100MG CAPSULE PO PRN (08:00)
[2019-07-29] MEDS ORDERED: MAGNESIUM/ALUMINUM HYDROXIDE/SIMETHICONE 30ML UDC PO PRN (08:00)
[2019-07-29] MEDS ORDERED: LORAZEPAM 2MG/ML CPJ IV PRN (08:00)
[2019-07-29] MEDS ORDERED: ACETAMINOPHEN 325MG TABLET PO PRN (08:00)
[2019-07-29] MEDS ORDERED: CLONIDINE 0.1MG TABLET PO PRN (08:00)
[2019-07-29] MEDS ORDERED: NA PHOS,M-B/NA PHOS,DI-BA ENEMA 118ML PR PRN (08:00)
[2019-07-29] MEDS ORDERED: DEXTROSE 50% WATER 50ML SYRINGE IV PRN (08:45)
[2019-07-29] MEDS: METHYLPREDNISOLONE SOD SUCC 125 MG/2 ML VIAL IV SCH ×4 (08:57→23:45)
[2019-07-29] MEDS: ONDANSETRON HCL 4MG/2ML INJ IV PRN ×2 (08:57→17:09)
[2019-07-29] MEDS: HYDROMORPHONE HCL/PF 2MG/ML CPJ IV PRN ×4 (08:59→19:56)
[2019-07-29] MEDS ORDERED: FUROSEMIDE 40MG/4ML VIAL IV SCH (09:00)
[2019-07-29] MEDS ORDERED: ENOXAPARIN 30MG/0.3ML SYR SUBCUT SCH (09:00)
[2019-07-29] MEDS: ASPIRIN 81MG EC TABLET PO SCH (09:59)
[2019-07-29] MEDS ORDERED: LEVOFLOXACIN 500MG PREMIX 100 ML IV SCH (10:00)
[2019-07-29] MEDS ORDERED: PNEUMOCOCCAL 23-VAL P-SAC VAC 0.5 ML IM ONE (10:00)
[2019-07-29] MEDS ORDERED: INFLUENZA VIRUS VACCINE(AFLURIA) 0.5ML SYR IM ONE (10:00)
[2019-07-29 10:19] LABS: CHLORIDE 107 mEq/L (98-107)
[2019-07-29 12:00] VITALS: BP 105/54
[2019-07-29] MEDS: BLOOD SUGAR DIAGNOSTIC STRIP TEST SCH ×3 (12:09→20:20)
[2019-07-29] MEDS: FUROSEMIDE 40MG/4ML VIAL IV SCH (12:55)
[2019-07-29] MEDS: AZITHROMYCIN 500 MG in DEXT 5% WATER 250 ML IV SCH (12:55)
[2019-07-29] MEDS: INSULIN LISPRO 100 UNITS/ML SUBCUT SCH ×3 (13:37→20:14)
[2019-07-29] MEDS: ALBUTEROL (0.083%) 2.5MG/3ML NEB HHN SCH ×2 (14:56→22:14)
[2019-07-29 16:00] VITALS: BP 121/76
[2019-07-29] MEDS ORDERED: RIVAROXABAN 20 MG TABLET PO SCH (17:00)
[2019-07-29] MEDS: RIVAROXABAN 20 MG TABLET PO SCH (19:56)
[2019-07-29 20:00] VITALS: BP 115/69
[2019-07-29] MEDS: HYDROCODONE/ACETAMINOPHEN 10/325MG TABLET PO PRN (23:47)
[2019-07-30] VITALS: BP 112/66
[2019-07-30] MEDS: ONDANSETRON HCL 4MG/2ML INJ IV PRN ×3 (02:29→16:14)
[2019-07-30] MEDS: HYDROMORPHONE HCL/PF 2MG/ML CPJ IV PRN ×5 (02:31→20:44)
[2019-07-30] MEDS: ALBUTEROL (0.083%) 2.5MG/3ML NEB HHN SCH ×4 (03:50→21:37)
[2019-07-30 04:00] VITALS: BP 116/63
[2019-07-30] MEDS: BLOOD SUGAR DIAGNOSTIC STRIP TEST SCH ×4 (06:24→20:44)
[2019-07-30] MEDS: METHYLPREDNISOLONE SOD SUCC 125 MG/2 ML VIAL IV SCH ×2 (06:24→20:43)
[2019-07-30] MEDS: INSULIN LISPRO 100 UNITS/ML SUBCUT SCH ×4 (06:25→20:50)
[2019-07-30] MEDS: HYDROCODONE/ACETAMINOPHEN 10/325MG TABLET PO PRN ×2 (06:25→12:50)
[2019-07-30 06:45] LABS: HEMATOCRIT. 40.7 % (36.0-48.0); HEMOGLOBIN. 13.4 g/dL (12.0-16.0); MEAN CORPUSCULAR VOLUME 91.4 fL (81.0-99.0); MEAN PLATELET VOLUME 8.5 fl (7.4-10.4); PLATELET 213 x1000/uL (130-400); RED BLOOD CELL COUNT 4.45 mill/uL (4.2-5.4); RED CELL DISTRIBUTION WIDTH 14.6 % (11.6-14.6)
[2019-07-30 07:21] LABS: CHLORIDE 103 mEq/L (98-107)
[2019-07-30 07:30] LABS: LDL CHOLESTEROL 75 mg/dL (5-100)
[2019-07-30 07:32] LABS: HDL CHOLESTEROL 62 mg/dL (40-59); T4 FREE 0.84 ng/dL (0.76-1.46)
[2019-07-30 08:00] VITALS: BP 112/55
[2019-07-30] MEDS: ASPIRIN 81MG EC TABLET PO SCH (09:01)
[2019-07-30 12:00] VITALS: BP 133/68
[2019-07-30] MEDS: AZITHROMYCIN 500 MG in DEXT 5% WATER 250 ML IV SCH (12:40)
[2019-07-30] MEDS: FUROSEMIDE 40MG/4ML VIAL IV SCH (12:40)
[2019-07-30] MEDS ORDERED: DILTIAZEM HCL 300MG CAPSULE SR 24HR PO SCH (13:00)
[2019-07-30] MEDS ORDERED: HYDR-4009 PO (15:54)
[2019-07-30] MEDS ORDERED: IPRA3AMP9 NEB ×2 (15:58→16:05)
[2019-07-30] MEDS ORDERED: FLUT1BLS INH (15:58)
[2019-07-30 16:00] VITALS: BP 110/64
[2019-07-30] MEDS ORDERED: SITA50TA3 PO (16:05)
[2019-07-30] MEDS ORDERED: DOCU250C69 PO (16:05)
[2019-07-30] MEDS ORDERED: METF-815 PO (16:05)
[2019-07-30] MEDS ORDERED: NITR0.4T49 SL (16:05)
[2019-07-30] MEDS ORDERED: ALEN70TA68 PO (16:05)
[2019-07-30] MEDS ORDERED: ASPI-1393 PO (16:06)
[2019-07-30] MEDS ORDERED: PROM5SYR PO (16:07)
[2019-07-30 16:33] LABS: PLATELET ESTIMATE NORMAL
[2019-07-30] MEDS: DILTIAZEM HCL 300MG CAPSULE SR 24HR PO SCH (17:59)
[2019-07-30 20:00] VITALS: BP 115/74
[2019-07-30] MEDS: RIVAROXABAN 20 MG TABLET PO SCH (20:43)
[2019-07-30] MEDS: GUAIFENESIN 600MG ER TABLET PO SCH (20:44)
[2019-07-30] MEDS ORDERED: ATORVASTATIN CALCIUM 40MG TABLET PO SCH (21:00)
[2019-07-30] MEDS ORDERED: METHYLPREDNISOLONE SOD SUCC 125 MG/2 ML VIAL IV SCH (21:00)
[2019-07-30] MEDS: ALPRAZOLAM 0.5 MG TABLET PO SCH (22:11)
[2019-07-31] VITALS: BP 118/76
[2019-07-31] MEDS: ALBUTEROL (0.083%) 2.5MG/3ML NEB HHN SCH ×2 (02:36→08:42)
[2019-07-31] MEDS: ONDANSETRON HCL 4MG/2ML INJ IV PRN (03:04)
[2019-07-31] MEDS: HYDROMORPHONE HCL/PF 2MG/ML CPJ IV PRN ×2 (03:04→06:39)
[2019-07-31 04:00] VITALS: BP 100/44
[2019-07-31 06:23] LABS: HEMATOCRIT. 41.9 % (36.0-48.0); HEMOGLOBIN. 13.4 g/dL (12.0-16.0); MEAN CORPUSCULAR HEMOGLOBIN 29.1 pg (28.0-32.0); MEAN CORPUSCULAR VOLUME 91.1 fL (81.0-99.0); MEAN PLATELET VOLUME 8.3 fl (7.4-10.4); PLATELET 230 x1000/uL (130-400); RED CELL DISTRIBUTION WIDTH 14.7 % (11.6-14.6)
[2019-07-31 06:30] LABS: CHLORIDE 102 mEq/L (98-107)
[2019-07-31] MEDS: BLOOD SUGAR DIAGNOSTIC STRIP TEST SCH (06:39)
[2019-07-31] MEDS: INSULIN LISPRO 100 UNITS/ML SUBCUT SCH (06:48)
[2019-07-31 08:00] VITALS: BP 111/54
[2019-07-31 08:34] VITALS: BP 111/54
[2019-07-31] MEDS: ASPIRIN 81MG EC TABLET PO SCH (09:49)
[2019-07-31] MEDS: DILTIAZEM HCL 300MG CAPSULE SR 24HR PO SCH (09:52)
[2019-07-31] MEDS: METHYLPREDNISOLONE SOD SUCC 125 MG/2 ML VIAL IV SCH (09:53)
[2019-07-31] MEDS: ALPRAZOLAM 0.5 MG TABLET PO SCH (09:54)
[2019-07-31] MEDS: GUAIFENESIN 600MG ER TABLET PO SCH (09:55)
[2019-07-31 17:24] LABS: PLATELET ESTIMATE NORMAL
== END 2019-07-31 11:50 | disposition home or self-care (01) | DRG 133 ==
LOC: ER 22:29 → 5WST 07-29 03:29 → ENRESERV 07-29 04:49
PROVIDERS: ADMIT Internal Medicine; ATTEND Internal Medicine
DX: J96.00 Acute respiratory failure, unspecified whether with hypoxia or hypercapnia (principal); J18.9 Pneumonia, unspecified organism; I11.0 Hypertensive heart disease with heart failure; J44.0 Chronic obstructive pulmonary disease with (acute) lower respiratory infection; I50.9 Heart failure, unspecified; Z99.81 Dependence on supplemental oxygen; J44.1 Chronic obstructive pulmonary disease with (acute) exacerbation; E11.9 Type 2 diabetes mellitus without complications; G47.33 Obstructive sleep apnea (adult) (pediatric); I25.10 Atherosclerotic heart disease of native coronary artery without angina pectoris; Z95.1 Presence of aortocoronary bypass graft; Z79.01 Long term (current) use of anticoagulants; Z79.51 Long term (current) use of inhaled steroids; Z79.82 Long term (current) use of aspirin; Z79.84 Long term (current) use of oral hypoglycemic drugs; Z79.899 Other long term (current) drug therapy; Z87.891 Personal history of nicotine dependence; Z88.5 Allergy status to narcotic agent; Z88.1 Allergy status to other antibiotic agents; Z88.8 Allergy status to other drugs, medicaments and biological substances; Z90.49 Acquired absence of other specified parts of digestive tract
CPT/HCPCS: 36415; 71045; 80048; 80061; 82962; 83880; 84439; 84443; 84484; 90686; 90732; 93005; 94640; 96374; 99285; J0456; J1170; J1200; J1650; J1815; J1940; J1956; J2060; J2405; J2930; J3010; J7060; J7611; J7620

== ENCOUNTER 2019-08-27 17:53 | Inpatient (IN) | payer MEDICAID ==
[~2019-08-27] VITALS: Ht 165.1 cm; Wt 87.1 kg
[~2019-08-27 17:53] MED LIST changes: +ALEN70TA68 PO; +DOCU250C69 PO; +FLUT1BLS INH; -HYDR-4005 PO; +HYDR-4009 PO; +IPRA3AMP9 NEB; +NITR0.4T49 SL; +PROM5SYR PO; -PVCXPC MT; +SITA50TA3 PO
[2019-08-27] MEDS ORDERED: ASPIRIN 81MG TABLET PO ONE (18:45)
[2019-08-27] MEDS ORDERED: NITROGLYCERIN OINT 1GM/INCH UDPKT TD ONE (18:45)
[2019-08-27] MEDS ORDERED: MAGNESIUM 2 G PREMIX 50 ML IV STA (18:45)
[2019-08-27] MEDS ORDERED: IPRATROPIUM BROMIDE (0.02%) 0.5MG/2.5ML NEB HHN STA (18:45)
[2019-08-27] MEDS ORDERED: ONDANSETRON HCL 4MG/2ML INJ IV STA (18:45)
[2019-08-27] MEDS ORDERED: METHYLPREDNISOLONE SOD SUCC 125 MG/2 ML VIAL IV STA (18:45)
[2019-08-27] MEDS ORDERED: ALBUTEROL (0.083%) 2.5MG/3ML NEB HHN STA (18:45)
[2019-08-27] MEDS ORDERED: HYDROCODONE/ACETAMINOPHEN 5/325MG TABLET PO ONE (18:45)
[2019-08-27 19:02] LABS: BASOPHILS % 0.7 % (0.0-2.0); EOSINOPHILS % 2.6 % (0.0-5.0); HEMATOCRIT. 42.3 % (36.0-48.0); HEMOGLOBIN. 13.6 g/dL (12.0-16.0); LYMPHOCYTES % 26.6 % (20.0-50.0); MEAN CORPUSCULAR HEMOGLOBIN 29.3 pg (28.0-32.0); MEAN CORPUSCULAR VOLUME 90.8 fL (81.0-99.0); MEAN PLATELET VOLUME 8.5 fl (7.4-10.4); MONOCYTES % 6.5 % (2.0-8.0); NEUTROPHILS % 63.6 % (40.0-76.0); PLATELET 237 x1000/uL (130-400); RED BLOOD CELL COUNT 4.66 mill/uL (4.2-5.4)
[2019-08-27 19:07] LABS: CHLORIDE 106 mEq/L (98-107)
[2019-08-27 23:45] VITALS: BP 112/64
[2019-08-28] VITALS: BP 112/64
[2019-08-28] MEDS ORDERED: ACETAMINOPHEN 325MG TABLET PO PRN (00:30)
[2019-08-28] MEDS ORDERED: IPRATROPIUM/ALBUTEROL 0.5-3(2.5)MG/3ML NEB HHN PRN (00:30)
[2019-08-28] MEDS ORDERED: DEXTROSE 50% WATER 50ML SYRINGE IV PRN ×2 (00:30→11:45)
[2019-08-28] MEDS: HYDROMORPHONE HCL/PF 2MG/ML CPJ IV PRN ×2 (00:50→09:20)
[2019-08-28] MEDS: ONDANSETRON HCL 4MG/2ML INJ IV PRN ×3 (00:51→17:29)
[2019-08-28] MEDS: IPRATROPIUM/ALBUTEROL 0.5-3(2.5)MG/3ML NEB HHN SCH ×5 (03:26→21:08)
[2019-08-28] MEDS ORDERED: DILT360C27 PO (03:59)
[2019-08-28] MEDS ORDERED: SITA100T11 PO (03:59)
[2019-08-28 04:00] VITALS: BP 127/65
[2019-08-28] MEDS ORDERED: NITROGLYCERIN 0.4MG TABLET SL SL PRN (04:00)
[2019-08-28 06:47] LABS: HEMATOCRIT. 39.5 % (36.0-48.0); HEMOGLOBIN. 12.8 g/dL (12.0-16.0); MEAN CORPUSCULAR HEMOGLOBIN 29.8 pg (28.0-32.0); MEAN CORPUSCULAR VOLUME 91.8 fL (81.0-99.0); MEAN PLATELET VOLUME 8.9 fl (7.4-10.4); PLATELET 182 x1000/uL (130-400); RED BLOOD CELL COUNT 4.31 mill/uL (4.2-5.4); RED CELL DISTRIBUTION WIDTH 15.4 % (11.6-14.6)
[2019-08-28 07:07] LABS: CHLORIDE 106 mEq/L (98-107)
[2019-08-28 07:16] LABS: LDL CHOLESTEROL 69 mg/dL (5-100)
[2019-08-28 07:17] LABS: CREATINE KINASE 30 IU/L (26-192)
[2019-08-28 07:18] LABS: HDL CHOLESTEROL 55 mg/dL (40-59)
[2019-08-28 07:20] LABS: CREATINE KINASE MB FRACTION 1.3 ng/mL (0.5-3.6)
[2019-08-28] MEDS: BLOOD SUGAR DIAGNOSTIC STRIP TEST SCH ×6 (07:40→20:50)
[2019-08-28 08:00] VITALS: BP 112/63
[2019-08-28] MEDS ORDERED: INSULIN LISPRO 100 UNITS/ML SUBCUT SCH (08:10)
[2019-08-28] MEDS: METFORMIN HCL 500MG TABLET PO SCH (08:49)
[2019-08-28] MEDS: LINAGLIPTIN 5MG TABLET PO SCH (08:49)
[2019-08-28] MEDS: DOCUSATE SODIUM 250MG CAPSULE PO SCH (08:49)
[2019-08-28] MEDS: ASPIRIN 81MG EC TABLET PO SCH (08:50)
[2019-08-28] MEDS: DILTIAZEM HCL 180MG CAPSULE CD 24HR PO SCH (08:50)
[2019-08-28] MEDS: ALPRAZOLAM 0.5 MG TABLET PO SCH ×2 (08:51→22:49)
[2019-08-28] MEDS ORDERED: MEDICATION NOT ON FORMULARY EA (Sitagliptin Phosphate (Januvia) 100 MG) PO SCH (09:00)
[2019-08-28 12:00] VITALS: BP 104/72
[2019-08-28] MEDS: INSULIN LISPRO 100 UNITS/ML SUBCUT SCH ×3 (13:10→20:49)
[2019-08-28] MEDS: METHYLPREDNISOLONE SOD SUCC 40 MG/ML VIAL IV SCH ×2 (15:34→22:49)
[2019-08-28] MEDS: HYDROCODONE/ACETAMINOPHEN 10/325MG TABLET PO PRN ×2 (15:44→21:20)
[2019-08-28 16:00] VITALS: BP 112/68
[2019-08-28 16:20] LABS: PLATELET ESTIMATE NORMAL
[2019-08-28] MEDS: RIVAROXABAN 20 MG TABLET PO SCH (17:54)
[2019-08-28 18:38] LABS: CLARITY URINE CLEAR (CLEAR); COLOR URINE YELLOW (YELLOW); KETONES URINE NEGATIVE (NEGATIVE); LEUKOCYTE ESTERASE URINE TRACE (NEGATIVE); NITRITE URINE NEGATIVE (NEGATIVE); OCCULT BLOOD URINE NEGATIVE (NEGATIVE); PROTEIN URINE NEGATIVE (NEGATIVE); SPECIFIC GRAVITY URINE 1.019 (1.005-1.030); UROBILINOGEN URINE 0.2 E.U./dL (0.2-1.0)
[2019-08-28 19:00] LABS: *AMPHETAMINES SCREEN URINE NEGATIVE (NEGATIVE); *BARBITURATES SCREEN URINE NEGATIVE (NEGATIVE); *BENZODIAZEPINES SCREEN URINE PRESUMTIVE POSITIVE (NEGATIVE); *COCAINE SCREEN URINE NEGATIVE (NEGATIVE)
[2019-08-28 19:01] LABS: CANNABINOID URINE SCREEN PRESUMTIVE POSITIVE (NEGATIVE); METHADONE URINE SCREEN NEGATIVE (NEGATIVE); OPIATES URINE SCREEN PRESUMTIVE POSITIVE (NEGATIVE); PHENCYCLIDINE URINE SCREEN NEGATIVE (NEGATIVE)
[2019-08-28] MEDS: FUROSEMIDE 40MG/4ML VIAL IVP SCH (19:30)
[2019-08-28 20:00] VITALS: BP 129/63
[2019-08-28] MEDS ORDERED: ATORVASTATIN CALCIUM 40MG TABLET PO SCH (21:00)
[2019-08-28] MEDS: INSULIN GLARGINE UD 100 UNITS/ML SYR SUBCUT SCH (22:50)
[2019-08-29] VITALS: BP 124/76
[2019-08-29] MEDS: IPRATROPIUM/ALBUTEROL 0.5-3(2.5)MG/3ML NEB HHN SCH ×5 (00:22→16:09)
[2019-08-29] MEDS: HYDROCODONE/ACETAMINOPHEN 10/325MG TABLET PO PRN ×2 (03:00→09:26)
[2019-08-29 04:00] VITALS: BP 100/57
[2019-08-29] MEDS: METHYLPREDNISOLONE SOD SUCC 40 MG/ML VIAL IV SCH ×2 (06:22→14:58)
[2019-08-29 06:52] LABS: CHLORIDE 103 mEq/L (98-107)
[2019-08-29] MEDS: BLOOD SUGAR DIAGNOSTIC STRIP TEST SCH ×3 (07:40→17:40)
[2019-08-29 08:00] VITALS: BP 129/93
[2019-08-29] MEDS: FUROSEMIDE 40MG/4ML VIAL IVP SCH (09:00)
[2019-08-29] MEDS ORDERED: LISINOPRIL 5MG TABLET PO SCH (09:00)
[2019-08-29] MEDS: DILTIAZEM HCL 180MG CAPSULE CD 24HR PO SCH (09:19)
[2019-08-29] MEDS: DOCUSATE SODIUM 250MG CAPSULE PO SCH (09:19)
[2019-08-29] MEDS: ALPRAZOLAM 0.5 MG TABLET PO SCH (09:19)
[2019-08-29] MEDS: LINAGLIPTIN 5MG TABLET PO SCH (09:20)
[2019-08-29] MEDS: METFORMIN HCL 500MG TABLET PO SCH (09:20)
[2019-08-29] MEDS: ASPIRIN 81MG EC TABLET PO SCH (09:20)
[2019-08-29] MEDS: INSULIN LISPRO 100 UNITS/ML SUBCUT SCH ×3 (09:35→18:10)
[2019-08-29] MEDS: INSULIN GLARGINE UD 100 UNITS/ML SYR SUBCUT SCH (10:29)
[2019-08-29 12:00] VITALS: BP 121/65
[2019-08-29] MEDS ORDERED: P20 MT (13:07)
[2019-08-29] MEDS ORDERED: PROM5SYR MT (13:07)
[2019-08-29 15:55] VITALS: BP 125/60
[2019-08-29] MEDS: RIVAROXABAN 20 MG TABLET PO SCH (18:17)
== END 2019-08-29 19:00 | disposition home or self-care (01) | DRG 140 ==
LOC: ER 17:53 → 7WST 19:13 → EDBEDREQ 19:58 → EDBEDREQTM 19:58 → ENRESERV 22:01
PROVIDERS: ADMIT Internal Medicine; ATTEND Internal Medicine
PROC: 5A09357 Assistance with Respiratory Ventilation, Less than 24 Consecutive Hours, Continuous Positive Airway Pressure (ICD-10-PCS; principal; 2019-08-29)
DX: J44.0 Chronic obstructive pulmonary disease with (acute) lower respiratory infection (principal); J96.21 Acute and chronic respiratory failure with hypoxia; I50.43 Acute on chronic combined systolic (congestive) and diastolic (congestive) heart failure; J18.9 Pneumonia, unspecified organism; I27.20 Pulmonary hypertension, unspecified; I42.9 Cardiomyopathy, unspecified; I11.0 Hypertensive heart disease with heart failure; Z99.81 Dependence on supplemental oxygen; J44.1 Chronic obstructive pulmonary disease with (acute) exacerbation; I48.91 Unspecified atrial fibrillation; I08.2 Rheumatic disorders of both aortic and tricuspid valves; E11.9 Type 2 diabetes mellitus without complications; E66.9 Obesity, unspecified; F12.90 Cannabis use, unspecified, uncomplicated; I25.10 Atherosclerotic heart disease of native coronary artery without angina pectoris; Z88.8 Allergy status to other drugs, medicaments and biological substances; Z88.1 Allergy status to other antibiotic agents; Z79.899 Other long term (current) drug therapy; Z95.1 Presence of aortocoronary bypass graft; Z79.82 Long term (current) use of aspirin; Z68.32 Body mass index [BMI] 32.0-32.9, adult; Z90.49 Acquired absence of other specified parts of digestive tract; Z95.5 Presence of coronary angioplasty implant and graft; Z71.3 Dietary counseling and surveillance
CPT/HCPCS: 36415; 71045; 80048; 80061; 80305; 81003; 82550; 82553; 82962; 83036; 83880; 84484; 93005; 94640; 94644; 94660; 96365; 96375; 97162; 99291; J1170; J1815; J1940; J2405; J2920; J2930; J3475; J7611; J7620

== ENCOUNTER 2020-06-30 15:53 | Emergency (ER) | payer OTHER, MEDICAID ==
[~2020-06-30] VITALS: Ht 165.1 cm; Wt 82.0 kg
[~2020-06-30 15:53] MED LIST changes: -ALBU18HF2 IH; -ALEN70TA68 PO; -ALPR1TAB2 PO; -ASPI-1393 PO; +ASPI-1497 PO; -DILT300C35 PO; +DILT360C27 PO; +MONT10TA21 MT; +PROM5SYR MT
[2020-06-30] MEDS ORDERED: KETOROLAC 30MG/ML VIAL IV STA (16:39)
[2020-06-30 16:59] LABS: BASOPHILS % 1.2 % (0.0-2.0); EOSINOPHILS % 0.5 % (0.0-5.0); HEMATOCRIT. 40.1 % (36.0-48.0); HEMOGLOBIN. 13.2 g/dL (12.0-16.0); LYMPHOCYTES % 19.2 % (20.0-50.0); MEAN CORPUSCULAR HEMOGLOBIN 29.7 pg (28.0-32.0); MEAN CORPUSCULAR VOLUME 90.2 fL (81.0-99.0); MEAN PLATELET VOLUME 8.7 fl (7.4-10.4); MONOCYTES % 6.8 % (2.0-8.0); NEUTROPHILS % 72.3 % (40.0-76.0); PLATELET 217 x1000/uL (130-400); RED BLOOD CELL COUNT 4.45 mill/uL (4.2-5.4); RED CELL DISTRIBUTION WIDTH 14.2 % (11.6-14.6)
[2020-06-30 17:05] LABS: CHLORIDE 109 mEq/L (98-107)
[2020-06-30] MEDS ORDERED: SODIUM CHLORIDE 0.9% 500 ML IV ONE (17:15)
[2020-06-30] MEDS ORDERED: TRAMADOL 50MG TABLET PO ONE (22:00)
[2020-06-30 23:20] VITALS: BP 141/80
== END 2020-06-30 23:24 | disposition home or self-care (01) ==
LOC: ER 15:53
DX: R10.32 Left lower quadrant pain (principal); G89.29 Other chronic pain; I48.91 Unspecified atrial fibrillation; I11.0 Hypertensive heart disease with heart failure; I50.9 Heart failure, unspecified; J44.9 Chronic obstructive pulmonary disease, unspecified; E11.9 Type 2 diabetes mellitus without complications; Z79.01 Long term (current) use of anticoagulants; Z95.1 Presence of aortocoronary bypass graft; Z90.49 Acquired absence of other specified parts of digestive tract; Z88.3 Allergy status to other anti-infective agents; Z88.5 Allergy status to narcotic agent; Z79.82 Long term (current) use of aspirin; Z79.84 Long term (current) use of oral hypoglycemic drugs
CPT/HCPCS: 36415; 71045; 74176; 80053; 83690; 83880; 84484; 85025; 93005; 96361; 96374; 99285; J1885; J7040

== ENCOUNTER 2020-08-19 19:38 | Inpatient (IN) | payer OTHER, MEDICAID ==
[~2020-08-19] VITALS: Ht 153.4 cm; Wt 81.7 kg
[2020-08-19] MEDS ORDERED: MORPHINE SULFATE 4 MG/ML CPJ (NOT FOR IM USE) IV STA (20:04)
[2020-08-19] MEDS ORDERED: ONDANSETRON HCL 4MG/2ML INJ IV STA (20:04)
[2020-08-19] MEDS ORDERED: SODIUM CHLORIDE 0.9% 1,000 ML IV ONE (20:15)
[2020-08-19 21:31] LABS: BASOPHILS % 0.5 % (0.0-2.0); EOSINOPHILS % 1.4 % (0.0-5.0); HEMATOCRIT. 39.4 % (36.0-48.0); HEMOGLOBIN. 13.3 g/dL (12.0-16.0); MEAN CORPUSCULAR HEMOGLOBIN 30.6 pg (28.0-32.0); MEAN CORPUSCULAR VOLUME 91.1 fL (81.0-99.0); MEAN PLATELET VOLUME 8.9 fl (7.4-10.4); MONOCYTES % 7.8 % (2.0-8.0); NEUTROPHILS % 67.3 % (40.0-76.0); PLATELET 193 x1000/uL (130-400); RED BLOOD CELL COUNT 4.33 mill/uL (4.2-5.4); RED CELL DISTRIBUTION WIDTH 14.2 % (11.6-14.6)
[2020-08-19 21:37] LABS: INR 0.9; PROTHROMBIN TIME 9.7 sec (9.6-11.0)
[2020-08-19 21:40] LABS: CHLORIDE 106 mEq/L (98-107)
[2020-08-19] MEDS ORDERED: GUAIFENESIN 200MG/10ML SUGAR FREE UDC PO PRN (22:15)
[2020-08-19] MEDS ORDERED: IPRATROPIUM/ALBUTEROL 0.5-3(2.5)MG/3ML NEB NEB PRN (22:15)
[2020-08-19] MEDS ORDERED: HYDROCODONE/ACETAMINOPHEN 5/325MG TABLET PO PRN (22:15)
[2020-08-19] MEDS ORDERED: DOCUSATE SODIUM 100MG CAPSULE PO PRN (22:15)
[2020-08-19] MEDS ORDERED: MORPHINE SULFATE 2 MG/ML CPJ (NOT FOR IM USE) IV PRN (22:15)
[2020-08-19] MEDS ORDERED: MAGNESIUM/ALUMINUM HYDROXIDE/SIMETHICONE 30ML UDC PO PRN (22:15)
[2020-08-19] MEDS ORDERED: CLONIDINE 0.1MG TABLET PO PRN (22:15)
[2020-08-19 22:37] LABS: CLARITY URINE CLEAR (CLEAR); COLOR URINE YELLOW (YELLOW); KETONES URINE NEGATIVE (NEGATIVE); LEUKOCYTE ESTERASE URINE 1+ (NEGATIVE); NITRITE URINE NEGATIVE (NEGATIVE); OCCULT BLOOD URINE TRACE (NEGATIVE); PROTEIN URINE NEGATIVE (NEGATIVE); SPECIFIC GRAVITY URINE 1.026 (1.005-1.030); UROBILINOGEN URINE 0.2 E.U./dL (0.2-1.0)
[2020-08-19 22:53] LABS: *AMPHETAMINES SCREEN URINE NEGATIVE (NEGATIVE); *BARBITURATES SCREEN URINE NEGATIVE (NEGATIVE)
[2020-08-19 22:54] LABS: *BENZODIAZEPINES SCREEN URINE PRESUMTIVE POSITIVE (NEGATIVE); *COCAINE SCREEN URINE NEGATIVE (NEGATIVE); CANNABINOID URINE SCREEN PRESUMTIVE POSITIVE (NEGATIVE); METHADONE URINE SCREEN NEGATIVE (NEGATIVE); OPIATES URINE SCREEN PRESUMTIVE POSITIVE (NEGATIVE); PHENCYCLIDINE URINE SCREEN NEGATIVE (NEGATIVE)
[2020-08-19 23:52] LABS: CHLORIDE 107 mEq/L (98-107)
[2020-08-20 02:00] VITALS: BP 131/72
[2020-08-20] MEDS: ONDANSETRON HCL 4MG/2ML INJ IV PRN ×2 (02:03→10:06)
[2020-08-20 02:15] VITALS: BP 126/75
[2020-08-20] MEDS: ACETAMINOPHEN 325MG TABLET PO PRN ×4 (03:29→22:14)
[2020-08-20] MEDS ORDERED: DEXTROSE 50% WATER 50ML SYRINGE IV PRN (07:45)
[2020-08-20 08:00] VITALS: BP 106/54
[2020-08-20] MEDS: BUDESONIDE 0.5MG/2ML NEB HHN SCH ×2 (09:00→21:10)
[2020-08-20] MEDS ORDERED: HEPARIN 5000 UNITS/ML VIAL SUBCUT SCH (09:00)
[2020-08-20] MEDS ORDERED: HYDROMORPHONE HCL/PF 2MG/ML CPJ IV PRN (09:30)
[2020-08-20] MEDS: INSULIN LISPRO 100 UNITS/ML SUBCUT SCH ×4 (10:25→21:00)
[2020-08-20 12:00] VITALS: BP 140/76
[2020-08-20] MEDS ORDERED: INFLUENZA VACCINE 05/PF 0.5 ML VIAL IM ONE (12:00)
[2020-08-20] MEDS: BLOOD SUGAR DIAGNOSTIC STRIP TEST SCH ×3 (13:11→21:00)
[2020-08-20] MEDS ORDERED: LISI2.5T47 PO (15:18)
[2020-08-20] MEDS ORDERED: ALPR2TAB2 PO (15:18)
[2020-08-20] MEDS ORDERED: METO100T16 PO (15:18)
[2020-08-20 16:00] VITALS: BP 134/86
[2020-08-20] MEDS ORDERED: ALPRAZOLAM 0.5 MG TABLET PO PRN (16:00)
[2020-08-20] MEDS ORDERED: MONTELUKAST SODIUM 10MG TABLET PO SCH (17:00)
[2020-08-20] MEDS: DILTIAZEM HCL 180MG CAPSULE CD 24HR PO SCH (17:45)
[2020-08-20] MEDS: HYDROMORPHONE HCL/PF 2MG/ML CPJ IV PRN (17:46)
[2020-08-20 20:00] VITALS: BP 142/77
[2020-08-20] MEDS ORDERED: ATORVASTATIN CALCIUM 40MG TABLET PO SCH (21:00)
[2020-08-20] MEDS: OMEPRAZOLE 20MG CAPSULE EXTENDED RELEASE PO SCH (22:15)
[2020-08-20] MEDS: METOPROLOL TARTRATE 50MG TABLET PO SCH (22:16)
[2020-08-21] VITALS: BP 105/60
[2020-08-21 04:00] VITALS: BP 120/60
[2020-08-21] MEDS: ONDANSETRON HCL 4MG/2ML INJ IV PRN ×2 (04:23→13:47)
[2020-08-21] MEDS: HYDROMORPHONE HCL/PF 2MG/ML CPJ IV PRN ×2 (04:24→13:48)
[2020-08-21] MEDS: OMEPRAZOLE 20MG CAPSULE EXTENDED RELEASE PO SCH (05:59)
[2020-08-21] MEDS: BLOOD SUGAR DIAGNOSTIC STRIP TEST SCH ×2 (05:59→12:24)
[2020-08-21] MEDS: INSULIN LISPRO 100 UNITS/ML SUBCUT SCH ×2 (07:50→12:24)
[2020-08-21 08:00] VITALS: BP 112/52
[2020-08-21] MEDS: BUDESONIDE 0.5MG/2ML NEB HHN SCH (09:00)
[2020-08-21] MEDS ORDERED: LISINOPRIL 2.5MG TABLET PO SCH (09:00)
[2020-08-21] MEDS ORDERED: FUROSEMIDE 40MG TABLET PO SCH (09:00)
[2020-08-21] MEDS: METOPROLOL TARTRATE 50MG TABLET PO SCH (09:00)
[2020-08-21] MEDS: DILTIAZEM HCL 180MG CAPSULE CD 24HR PO SCH (09:21)
[2020-08-21 12:00] VITALS: BP 106/44
[2020-08-21] MEDS: ACETAMINOPHEN 325MG TABLET PO PRN (12:11)
[2020-08-21] MEDS ORDERED: TRAM50TA94 MT (14:37)
[2020-08-21] MEDS ORDERED: OMEP40CA12 MT (14:37)
[2020-08-21] MEDS ORDERED: HYDROCODONE/ACETAMINOPHEN 10/325MG TABLET PO PRN (14:45)
[2020-08-21] MEDS ORDERED: POLYETHYLENE GLYCOL 3350 (17GM) 1 DOSE PACK PO SCH (15:00)
[2020-08-21] MEDS ORDERED: SORBITOL 70% SOLN 30ML PO NR (15:00)
[2020-08-21 16:00] VITALS: BP 114/64
[2020-08-21 16:08] LABS: BASOPHILS % 0.5 % (0.0-2.0); EOSINOPHILS % 1.3 % (0.0-5.0); HEMATOCRIT. 40.3 % (36.0-48.0); HEMOGLOBIN. 13.3 g/dL (12.0-16.0); LYMPHOCYTES % 20.8 % (20.0-50.0); MEAN CORPUSCULAR HEMOGLOBIN 30.2 pg (28.0-32.0); MEAN CORPUSCULAR VOLUME 91.5 fL (81.0-99.0); MEAN PLATELET VOLUME 8.9 fl (7.4-10.4); MONOCYTES % 8.2 % (2.0-8.0); NEUTROPHILS % 69.2 % (40.0-76.0); PLATELET 195 x1000/uL (130-400); RED CELL DISTRIBUTION WIDTH 14.2 % (11.6-14.6)
[2020-08-21 16:31] LABS: CHLORIDE 103 mEq/L (98-107)
[2020-08-21] MEDS ORDERED: DOCUSATE SODIUM 250MG CAPSULE PO SCH (17:00)
[2020-08-21 18:14] VITALS: BP 114/64
[2020-08-21] MEDS ORDERED: LACTULOSE 20G/30ML UDC PO SCH (21:00)
[2020-08-21] MEDS ORDERED: GABAPENTIN 300MG CAPSULE PO SCH (22:00)
== END 2020-08-21 18:58 | disposition home or self-care (01) | DRG 391 ==
LOC: ER 19:38 → EDBEDREQ 20:07 → MICUSO 21:55 → EDBEDREQTM 22:01 → EDBEDREQ 22:01 → EDBEDREQTM 23:18 → EDBEDREQSVC 23:18 → 6EST 23:48
PROVIDERS: ADMIT Internal Medicine; ATTEND Internal Medicine
PROC: 5A09357 Assistance with Respiratory Ventilation, Less than 24 Consecutive Hours, Continuous Positive Airway Pressure (ICD-10-PCS; principal; 2020-08-20)
DX: K29.70 Gastritis, unspecified, without bleeding (principal); I50.23 Acute on chronic systolic (congestive) heart failure; K92.1 Melena; J96.10 Chronic respiratory failure, unspecified whether with hypoxia or hypercapnia; I25.10 Atherosclerotic heart disease of native coronary artery without angina pectoris; I48.91 Unspecified atrial fibrillation; I11.0 Hypertensive heart disease with heart failure; E66.9 Obesity, unspecified; E11.9 Type 2 diabetes mellitus without complications; E83.42 Hypomagnesemia; D25.9 Leiomyoma of uterus, unspecified; K59.09 Other constipation; K42.9 Umbilical hernia without obstruction or gangrene; K43.9 Ventral hernia without obstruction or gangrene; M19.90 Unspecified osteoarthritis, unspecified site; E78.00 Pure hypercholesterolemia, unspecified; F12.90 Cannabis use, unspecified, uncomplicated; F41.9 Anxiety disorder, unspecified; R82.71 Bacteriuria; K57.90 Diverticulosis of intestine, part unspecified, without perforation or abscess without bleeding; F41.1 Generalized anxiety disorder; G47.33 Obstructive sleep apnea (adult) (pediatric); G89.29 Other chronic pain; T40.695A Adverse effect of other narcotics, initial encounter; J44.9 Chronic obstructive pulmonary disease, unspecified; Z76.5 Malingerer [conscious simulation]; Z95.1 Presence of aortocoronary bypass graft; Z79.51 Long term (current) use of inhaled steroids; Z79.82 Long term (current) use of aspirin; Z79.84 Long term (current) use of oral hypoglycemic drugs; Z79.01 Long term (current) use of anticoagulants; Z79.891 Long term (current) use of opiate analgesic; Z79.899 Other long term (current) drug therapy; Z87.891 Personal history of nicotine dependence; Z95.5 Presence of coronary angioplasty implant and graft; Z99.81 Dependence on supplemental oxygen; Z68.34 Body mass index [BMI] 34.0-34.9, adult; Z88.1 Allergy status to other antibiotic agents; Z88.5 Allergy status to narcotic agent; Z88.8 Allergy status to other drugs, medicaments and biological substances; Y92.89 Other specified places as the place of occurrence of the external cause; K59.03 Drug induced constipation
CPT/HCPCS: 36415; 71045; 74176; 80048; 80053; 80305; 81003; 82962; 83036; 83605; 83735; 83880; 84484; 85025; 93005; 93306; 93970; 94640; 94660; 96374; 99285; J1170; J1644; J1815; J2270; J2405; J7030; J7626

== ENCOUNTER 2020-09-29 16:59 | Inpatient (IN) | payer MEDICARE, MEDICAID ==
[~2020-09-29] VITALS: Ht 165.1 cm; Wt 91.0 kg
[~2020-09-29 16:59] MED LIST changes: +ALPR2TAB2 PO; +LISI2.5T47 PO; +METO100T16 PO; +OMEP40CA12 MT; +TRAM50TA94 MT
[2020-09-29] MEDS ORDERED: IPRATROPIUM/ALBUTEROL 0.5-3(2.5)MG/3ML NEB HHN ONE (17:30)
[2020-09-29 17:58] LABS: EOSINOPHILS % 0.7 % (0.0-5.0); HEMATOCRIT. 38.9 % (36.0-48.0); HEMOGLOBIN. 13.2 g/dL (12.0-16.0); LYMPHOCYTES % 15.9 % (20.0-50.0); MEAN CORPUSCULAR HEMOGLOBIN 30.4 pg (28.0-32.0); MEAN CORPUSCULAR VOLUME 89.8 fL (81.0-99.0); MEAN PLATELET VOLUME 9.1 fl (7.4-10.4); MONOCYTES % 6.5 % (2.0-8.0); NEUTROPHILS % 75.9 % (40.0-76.0); PLATELET 227 x1000/uL (130-400); RED BLOOD CELL COUNT 4.33 mill/uL (4.2-5.4); RED CELL DISTRIBUTION WIDTH 13.6 % (11.6-14.6)
[2020-09-29 18:07] LABS: CHLORIDE 107 mEq/L (98-107)
[2020-09-29] MEDS ORDERED: HYDROMORPHONE HCL/PF 2MG/ML CPJ IV ONE (18:30)
[2020-09-29] MEDS ORDERED: METHYLPREDNISOLONE SOD SUCC 125 MG/2 ML VIAL IV ONE (19:00)
[2020-09-29] MEDS ORDERED: AZITHROMYCIN 500 MG TABLET PO ONE (19:00)
[2020-09-29] MEDS ORDERED: NITROGLYCERIN 0.4MG TABLET SL SL PRN (19:30)
[2020-09-29] MEDS ORDERED: CLONIDINE 0.1MG TABLET PO PRN (19:30)
[2020-09-29] MEDS ORDERED: DOCUSATE SODIUM 100MG CAPSULE PO PRN (19:30)
[2020-09-29] MEDS ORDERED: ONDANSETRON HCL 4MG/2ML INJ IV PRN (19:30)
[2020-09-29] MEDS ORDERED: ZOLPIDEM TARTRATE 5MG TABLET PO PRN (19:30)
[2020-09-29] MEDS ORDERED: MAGNESIUM/ALUMINUM HYDROXIDE/SIMETHICONE 30ML UDC PO PRN (19:30)
[2020-09-29] MEDS ORDERED: ALBUTEROL 6.7GM HFA INHALER ORI PRN (19:30)
[2020-09-29] MEDS ORDERED: TRAMADOL 50MG TABLET PO PRN (19:30)
[2020-09-29] MEDS ORDERED: GUAIFENESIN 200MG/10ML SUGAR FREE UDC PO PRN (19:30)
[2020-09-29] MEDS ORDERED: KETOROLAC 15MG/ML VIAL IV PRN (19:30)
[2020-09-29] MEDS ORDERED: DEXTROSE 50% WATER 50ML SYRINGE IV PRN (19:30)
[2020-09-29] MEDS ORDERED: ACETAMINOPHEN 325MG TABLET PO PRN ×2 (19:30)
[2020-09-29] MEDS ORDERED: ENOXAPARIN 30MG/0.3ML SYR SUBCUT SCH (20:00)
[2020-09-29 20:25] LABS: CLARITY URINE CLEAR (CLEAR); COLOR URINE YELLOW (YELLOW); KETONES URINE TRACE (NEGATIVE); LEUKOCYTE ESTERASE URINE NEGATIVE (NEGATIVE); NITRITE URINE NEGATIVE (NEGATIVE); OCCULT BLOOD URINE NEGATIVE (NEGATIVE); PROTEIN URINE NEGATIVE (NEGATIVE); SPECIFIC GRAVITY URINE 1.028 (1.005-1.030); UROBILINOGEN URINE 0.2 E.U./dL (0.2-1.0)
[2020-09-29 20:27] LABS: FOLIC ACID (FOLATE) SERUM 17.8 ng/mL (>5.38)
[2020-09-29 20:42] LABS: *AMPHETAMINES SCREEN URINE NEGATIVE (NEGATIVE); *BARBITURATES SCREEN URINE NEGATIVE (NEGATIVE); *BENZODIAZEPINES SCREEN URINE PRESUMTIVE POSITIVE (NEGATIVE); *COCAINE SCREEN URINE NEGATIVE (NEGATIVE)
[2020-09-29 20:43] LABS: CANNABINOID URINE SCREEN PRESUMTIVE POSITIVE (NEGATIVE); METHADONE URINE SCREEN NEGATIVE (NEGATIVE); OPIATES URINE SCREEN PRESUMTIVE POSITIVE (NEGATIVE); PHENCYCLIDINE URINE SCREEN NEGATIVE (NEGATIVE)
[2020-09-29] MEDS: INSULIN LISPRO 100 UNITS/ML SUBCUT SCH (21:00)
[2020-09-29] MEDS ORDERED: METOPROLOL TARTRATE 25MG TABLET PO SCH (21:00)
[2020-09-29] MEDS ORDERED: CEFTRIAXONE 1 G PREMIX 50 ML IV SCH (21:00)
[2020-09-29] MEDS ORDERED: FAMOTIDINE 20MG TABLET PO SCH (21:00)
[2020-09-29] MEDS ORDERED: ASCORBIC ACID 500 MG TABLET PO SCH (21:00)
[2020-09-29] MEDS: BLOOD SUGAR DIAGNOSTIC STRIP TEST SCH (21:51)
[2020-09-30 00:47] LABS: CREATINE KINASE 56 IU/L (26-192)
[2020-09-30 00:49] LABS: CREATINE KINASE MB FRACTION 1.4 ng/mL (0.5-3.6)
[2020-09-30] MEDS: DILTIAZEM HCL 60MG TABLET PO SCH ×2 (00:51→06:50)
[2020-09-30] MEDS: METHYLPREDNISOLONE SOD SUCC 125 MG/2 ML VIAL IV SCH ×2 (00:51→06:50)
[2020-09-30] MEDS: ALBUTEROL 6.7GM HFA INHALER ORI SCH ×2 (04:28→09:06)
[2020-09-30 05:26] LABS: BASOPHILS % 0.4 % (0.0-2.0); EOSINOPHILS % 0.1 % (0.0-5.0); HEMATOCRIT. 38.9 % (36.0-48.0); HEMOGLOBIN. 12.8 g/dL (12.0-16.0); LYMPHOCYTES % 9.6 % (20.0-50.0); MEAN CORPUSCULAR HEMOGLOBIN 29.8 pg (28.0-32.0); MEAN CORPUSCULAR VOLUME 90.8 fL (81.0-99.0); MEAN PLATELET VOLUME 9.4 fl (7.4-10.4); MONOCYTES % 0.6 % (2.0-8.0); NEUTROPHILS % 89.3 % (40.0-76.0); PLATELET 190 x1000/uL (130-400); RED BLOOD CELL COUNT 4.29 mill/uL (4.2-5.4); RED CELL DISTRIBUTION WIDTH 13.4 % (11.6-14.6)
[2020-09-30 05:34] LABS: CHLORIDE 105 mEq/L (98-107)
[2020-09-30 05:46] LABS: CREATINE KINASE 51 IU/L (26-192)
[2020-09-30 05:48] LABS: CREATINE KINASE MB FRACTION 1.4 ng/mL (0.5-3.6)
[2020-09-30] MEDS: BLOOD SUGAR DIAGNOSTIC STRIP TEST SCH (07:07)
[2020-09-30] MEDS: INSULIN LISPRO 100 UNITS/ML SUBCUT SCH (07:12)
[2020-09-30 07:43] VITALS: BP 118/55
[2020-09-30] MEDS ORDERED: ZINC SULFATE 220 MG ( 50 ) CAPSULE PO SCH (09:00)
[2020-09-30] MEDS ORDERED: ASPIRIN 81MG EC TABLET PO SCH (09:00)
[2020-09-30] MEDS ORDERED: KETOROLAC 15MG/ML VIAL IV PRN (10:15)
[2020-09-30] MEDS ORDERED: AZITHROMYCIN 500 MG in DEXT 5% WATER 250 ML IV SCH (20:00)
== END 2020-09-30 12:32 | disposition left against medical advice (07) | DRG 177 ==
LOC: ER 16:59 → MICUSO 18:49 → SUPCPDRO 19:21
PROVIDERS: ADMIT Internal Medicine; ATTEND Internal Medicine
DX: U07.1 COVID-19 (principal); J96.01 Acute respiratory failure with hypoxia; J44.1 Chronic obstructive pulmonary disease with (acute) exacerbation; E11.9 Type 2 diabetes mellitus without complications; E78.00 Pure hypercholesterolemia, unspecified; F12.10 Cannabis abuse, uncomplicated; F41.9 Anxiety disorder, unspecified; J45.909 Unspecified asthma, uncomplicated; I11.0 Hypertensive heart disease with heart failure; I25.10 Atherosclerotic heart disease of native coronary artery without angina pectoris; I45.10 Unspecified right bundle-branch block; I50.9 Heart failure, unspecified; Z79.4 Long term (current) use of insulin; Z95.1 Presence of aortocoronary bypass graft; Z99.81 Dependence on supplemental oxygen; Z88.1 Allergy status to other antibiotic agents; Z88.5 Allergy status to narcotic agent; Z88.8 Allergy status to other drugs, medicaments and biological substances; Z90.49 Acquired absence of other specified parts of digestive tract; I25.2 Old myocardial infarction; Z79.899 Other long term (current) drug therapy
CPT/HCPCS: 36415; 71045; 80053; 80061; 80305; 81003; 82550; 82553; 82607; 82746; 82962; 83036; 83540; 83550; 83735; 83880; 84100; 84145; 84484; 85025; 85379; 87635; 93005; 93970; 96374; 99285; J0696; J1170; J1650; J1815; J1885; J2405; J2930